=== PATIENT | female | born 1940 | race Caucasian/White ===

== ENCOUNTER 2017-10-08 16:36 | Inpatient (IN) | payer MEDICARE ==
[~2017-10-08] VITALS: Ht 165.1 cm; Wt 75.0 kg
[2017-10-08] VITALS (9 sets, daily range): BP systolic 120–159; BP diastolic 56–67; PULSE 70–89; RESP 16–20; TEMP 98–99; O2SAT 95–99
[~2017-10-08 16:36] MED LIST: CARB1DRO OU; LATA0.00 OP; LISI-360 PO; OMEP20TA PO; PILO2SOL3 LEFT EYE; SIMV40TA PO; TRUS2SOL OU
[2017-10-08] MEDS ORDERED: SODIUM CHLORIDE 0.9% FLUSH 10 ML FLUSH IVF PRN (17:00)
--- NOTE | 2017-10-08 17:01 | PD ---
HPI Chief Complaint: Chest Pain Time Seen by Provider: 16:56 Travel History International Travel<30 days: No Contact w/Intl Traveler<30days: No Traveled to known affect area: No History of Present Illness HPI This is a 76-year-old female with history of GERD, hypertension, diabetes, hyperlipidemia. She presents via EMS for evaluation of chest pain. She reports that prior to arrival she developed a sharp substernal chest pain radiating to the back. This occurred shortly after eating meat loaf. Symptoms lasted for approximately 5-10 minutes. She reports that EMS arrived and administered 3 baby aspirin as well as a nitroglycerin spray. She reports that after the sublingual spray her chest pain resolved but she had a brief 5-10 second syncopal episode and her blood pressure went down to the 90s systolic per EMS. She swiftly regained consciousness and her blood pressure improved. She has since been asymptomatic. She denies headache, shortness of breath, cough, congestion, abdominal pain, nausea, vomiting. She reports maternal and paternal history of coronary artery disease. According to chart review she had a normal stress test in 2011, she points that she has not had any stress testing since then. She has no other complaints at this time. PFSH Past Medical History Cardiovascular Problems: Yes High Cholesterol: Yes Diabetes: No ("PRE-DIABETES") Gastrointestinal Disorders: Yes (HX OF GALLSTONES) Glaucoma: Yes Past Surgical History Hysterectomy: Yes Other Surgery: Yes (LAMINECTOMY) Social History Alcohol Use: No Tobacco Use: No Substance Use: No Allergies-Medications (Allergen,Severity, Reaction): Uncoded Allergies: tolectin (Allergy, Severe, ANAPHYLAXIS, 03/07/12) Reported Meds & Prescriptions Reported Meds & Active Scripts Active Reported Refresh Opth Drops (Polyvinyl Alcohol-Povidone Opth Drops) 1.4-0.6% Drops 1-2 Drop EACH EYE PRN PRN Trusopt Opth Drops (Dorzolamide HCl) 2% Soln 1 Drop EACH EYE TID Latanoprost Opth Drops (Latanoprost) 0.005% Drops 1 Drop EACH EYE HS Refrigerate until opened. Lisinopril 10 Mg Tab 10 Mg PO DAILY Omeprazole 20 Mg Tab 20 Mg PO DAILY Pilocarpine Opth 2% (Pilocarpine HCl) 2 % Soln 1 Drop LEFT EYE Q6HR Zocor (Simvastatin) 40 Mg Tab 40 Mg PO DAILY Review of Systems Except as stated in HPI: all other systems reviewed are Neg Physical Exam Narrative GENERAL: Well-developed well-nourished female no acute distress SKIN: Warm and dry. HEAD: Atraumatic. Normocephalic. EYES: Pupils equal and round. No scleral icterus. No injection or drainage. ENT: No nasal bleeding or discharge. Mucous membranes pink and moist. NECK: Trachea midline. No JVD. CARDIOVASCULAR: Regular rate and rhythm. No murmur appreciated. RESPIRATORY: No accessory muscle use. Clear to auscultation. Breath sounds equal bilaterally. GASTROINTESTINAL: Abdomen soft, non-tender, nondistended. Hepatic and splenic margins not palpable. MUSCULOSKELETAL: No obvious deformities. No clubbing. No cyanosis. No edema. NEUROLOGICAL: Awake and alert. No obvious cranial nerve deficits. Motor grossly within normal limits. Normal speech. PSYCHIATRIC: Appropriate mood and affect; insight and judgment normal. Data Data Last Documented VS Vital Signs Date Time Temp Pulse Resp B/P (MAP) Pulse Ox O2 Delivery O2 Flow Rate FiO2 10/08/17 18:34 72 18 145/67 (93) 97 Room Air 10/08/17 17:10 99.0 10/08/17 16:48 2.00 Orders Orders Electrocardiogram (10/08/17 16:58) Basic Metabolic Panel (Bmp) (10/08/17 16:58) Ckmb (Isoenzyme) Profile (10/08/17 16:58) Complete Blood Count With Diff (10/08/17 16:58) Magnesium (Mg) (10/08/17 16:58) Prothrombin Time / Inr (Pt) (10/08/17 16:58) Act Partial Throm Time (Ptt) (10/08/17 16:58) Troponin I (10/08/17 16:58) Ecg Monitoring (10/08/17 16:58) Bilateral Bp Monitoring (10/08/17 16:58) Iv Access Insert/Monitor (10/08/17 16:58) Oximetry (10/08/17 16:58) Oxygen Administration (10/08/17 16:58) Sodium Chloride 0.9% Flush (Ns Flush) (10/08/17 17:00) Chest, Pa & Lat (10/08/17 16:58) Type And Screen (10/08/17 17:54) Pantoprazole Inj (Protonix Inj) (10/08/17 18:00) Admit Order (Ed Use Only) (10/08/17 19:26) Labs Laboratory Tests Test 10/08/17 17:00 White Blood Count 5.0 TH/MM3 Red Blood Count 2.04 MIL/MM3 Hemoglobin 7.6 GM/DL Hematocrit 22.8 % Mean Corpuscular Volume 111.5 FL Mean Corpuscular Hemoglobin 37.3 PG Mean Corpuscular Hemoglobin Concent 33.4 % Red Cell Distribution Width 18.6 % Platelet Count 104 TH/MM3 Mean Platelet Volume 11.1 FL Neutrophils (%) (Auto) 93.8 % Lymphocytes (%) (Auto) 4.6 % Monocytes (%) (Auto) 0.7 % Eosinophils (%) (Auto) 0.2 % Basophils (%) (Auto) 0.7 % Neutrophils # (Auto) 4.7 TH/MM3 Lymphocytes # (Auto) 0.2 TH/MM3 Monocytes # (Auto) 0.0 TH/MM3 Eosinophils # (Auto) 0.0 TH/MM3 Basophils # (Auto) 0.0 TH/MM3 CBC Comment AUTO DIFF Differential Comment AUTO DIFF CONFIRMED Platelet Estimate LOW Platelet Morphology Comment ENLARGED Prothrombin Time 10.7 SEC Prothromb Time International Ratio 1.1 RATIO Activated Partial Thromboplast Time 22.2 SEC Blood Urea Nitrogen 11 MG/DL Creatinine 0.98 MG/DL Random Glucose 123 MG/DL Calcium Level 8.0 MG/DL Magnesium Level 2.0 MG/DL Sodium Level 139 MEQ/L Potassium Level 3.7 MEQ/L Chloride Level 109 MEQ/L Carbon Dioxide Level 23.7 MEQ/L Anion Gap 6 MEQ/L Estimat Glomerular Filtration Rate 55 ML/MIN Total Creatine Kinase 43 U/L Troponin I LESS THAN 0.02 NG/ML [facility] Medical Decision Making Medical Screen Exam Complete: Yes Emergency Medical Condition: Yes Medical Record Reviewed: Yes Differential Diagnosis Acute coronary syndrome, angina, aortic dissection, pulmonary embolism, pericarditis, myocarditis, pneumothorax, hemothorax Narrative Course The patient was placed on ECG monitoring pulse oximetry. A 12-lead EKG was obtained revealing sinus rhythm. Lab work, chest x-ray have been ordered. The patient is currently asymptomatic. The patient's CBC reveals a hemoglobin of 7.6 which is macrocytic. She has platelet count of 104. Her most recent hemoglobin on record here was 14.3 on March 07, 2012. She reports that she recently saw a airplane and engine inspector name Dr. Kenneth Mccray who told her that her blood count was "low" and did a bone marrow biopsy 10 days ago, she does not yet know the results. She denies any shortness of breath, dyspnea with exertion, lightheadedness, dizziness. She denies any hematuria, hematemesis, black or tarry stools, bright red blood per rectum. Rectal examination does reveal brown stool which is heme positive. CK and troponin are normal. Glucose is 123. Chloride is 109. Calcium is 8.0. The patient will be admitted to the medicine service. [facility] Point of Care Internal Pos. & Neg. Controls: Passed Fecal Specimen Occult Blood: Positive Diagnosis Primary Impression: Chest pain Additional Impressions: GI bleed Anemia Admitting Information Admitting Physician Requests: Admit Willis Najera Oct 08, 2017 17:01
[2017-10-08] MEDS ORDERED: PILO2SOL3 LEFT EYE (17:05)
[2017-10-08] MEDS ORDERED: LISI10TA3 PO (17:05)
[2017-10-08] MEDS ORDERED: OMEP20TA93 PO (17:05)
[2017-10-08] MEDS ORDERED: TRUS2SOL EACH EYE (17:05)
[2017-10-08] MEDS ORDERED: ZOCO40TA PO (17:05)
[2017-10-08] MEDS ORDERED: LATA0.002 EACH EYE (17:05)
[2017-10-08] MEDS ORDERED: REFRDRO EACH EYE (17:05)
[2017-10-08 17:20] LABS: AUTOMATED NEUTROPHIL # 4.7 TH/MM3 (1.8-7.7); BASOPHIL % 0.7 % (0.0-2.0); EOSINOPHIL % 0.2 % (0.0-4.0); HEMATOCRIT 22.8 % (35.0-46.0); HEMOGLOBIN 7.6 GM/DL (11.6-15.3); LYMPH % 4.6 % (9.0-44.0); LYMPHOCYTE # 0.2 TH/MM3 (1.0-4.8); MEAN CELL VOLUME 111.5 FL (80.0-100.0); MEAN CORPUSCULAR HEMOGLOBIN 37.3 PG (27.0-34.0); MEAN CORPUSCULAR HGB CONC 33.4 % (32.0-36.0); MEAN PLATELET VOLUME 11.1 FL (7.0-11.0); MONO % 0.7 % (0.0-8.0); NEUT % 93.8 % (16.0-70.0); PLATELET COUNT 104 TH/MM3 (150-450); RED BLOOD COUNT 2.04 MIL/MM3 (4.00-5.30); RED CELL DISTRIBUTION WIDTH 18.6 % (11.6-17.2)
[2017-10-08 17:29] LABS: INTERNATIONAL NORMALIZED RATIO 1.1 RATIO; PROTHROMBIN TIME - PATIENT 10.7 SEC (9.8-11.6)
--- NOTE | 2017-10-08 17:38 | RADRPT ---
EXAM DATE/TIME: 10/08/2017 17:22 [facility] COMPARISON: No previous studies available for comparison. INDICATIONS : Chest pain. MEDICAL HISTORY : None. SURGICAL HISTORY : None. ENCOUNTER: Initial ACUITY: 1 day PAIN SCORE: 07/09 LOCATION: Bilateral chest FINDINGS: PA and lateral views of the chest demonstrate the lungs to be symmetrically aerated without evidence of mass, infiltrate or effusion. The cardiomediastinal contours are unremarkable. Osseous structure s are intact. CONCLUSION: No acute disease. Patrick Stephens MD on October 08, 2017 at 17:34 Board Certified Radiologist. This report was verified electronically.
[2017-10-08 17:39] LABS: BICARBONATE 23.7 MEQ/L (21.0-32.0); BLOOD UREA NITROGEN 11 MG/DL (7-18); CHLORIDE 109 MEQ/L (98-107); CREATININE 0.98 MG/DL (0.50-1.00); GLOMERULAR FILTRATION RATE 55 ML/MIN (>89); GLUCOSE,RANDOM 123 MG/DL (74-106); SODIUM (NA) 139 MEQ/L (136-145)
[2017-10-08 17:43] LABS: TROPONIN I LESS THAN 0.02 NG/ML (0.02-0.05)
[2017-10-08] MEDS ORDERED: PANTOPRAZOLE SODIUM 40 MG VIAL IVP ONE (18:00)
[2017-10-08] MEDS ORDERED: ACETAMINOPHEN 325 MG TAB PO PRN (20:15)
[2017-10-08] MEDS ORDERED: NALOXONE HCL 0.4 MG/ML AMP IV PUSH PRN (20:15)
[2017-10-08] MEDS ORDERED: ONDANSETRON HCL 4 MG/2 ML VIAL IVP PRN (20:15)
[2017-10-08] MEDS ORDERED: MAGNESIUM HYDROXIDE SUSP 30 ML CUP PO PRN (20:15)
[2017-10-08] MEDS ORDERED: SODIUM CHLORIDE 0.9% FLUSH 10 ML FLUSH IV FLUSH PRN (20:15)
[2017-10-08] MEDS ORDERED: CARBOXYMETHYLCELL SOD 0.5% OPTH SOLN 15 ML BTL EACH EYE PRN (20:30)
[2017-10-08] MEDS ORDERED: cloNIDine HCL 0.2 MG TAB PO PRN (20:30)
[2017-10-08] MEDS ORDERED: ENALAPRILAT 1.25 MG/ML VIAL IV PRN (20:30)
--- NOTE | 2017-10-08 20:48 | RADRPT ---
EXAM DATE/TIME: 10/08/2017 20:11 [facility] COMPARISON: No previous studies available for comparison. INDICATIONS : Chest pain starting today MEDICAL HISTORY : None. SURGICAL HISTORY : None. ENCOUNTER: Initial ACUITY: 1 day PAIN SCORE: 5/10 LOCATION: Bilateral chest FINDINGS: A single view of the chest demonstrates the lungs to be symmetrically aerated without evidence of mas s, infiltrate or effusion. The cardiomediastinal contours are unremarkable. Osseous structures are intact. CONCLUSION: 1. No active disease. Husam Byrd MD on October 08, 2017 at 20:45 Board Certified Radiologist. This report was verified electronically.
[2017-10-08] MEDS: SODIUM CHLORIDE 0.9% FLUSH 10 ML FLUSH IV FLUSH SCH (21:00)
[2017-10-08] MEDS: LATANOPROST 0.005% OPHT SOLN 2.5 ML BTL EACH EYE SCH (21:00)
[2017-10-08] MEDS: ATORVASTATIN 20 MG TAB PO SCH (21:21)
[2017-10-08 21:35] LABS: ALBUMIN 3.4 GM/DL (3.4-5.0); DIRECT BILIRUBIN ADULT 0.5 MG/DL (0.0-0.2)
[2017-10-08 21:36] LABS: INDIRECT BILIRUBIN 0.6 MG/DL (0.0-0.8); TOTAL BILIRUBIN ADULT 1.1 MG/DL (0.2-1.0); TOTAL PROTEIN 6.7 GM/DL (6.4-8.2)
[2017-10-09] VITALS (10 sets, daily range): BP systolic 119–150; BP diastolic 55–66; PULSE 74–96; RESP 16–20; TEMP 98.7–100.2; O2SAT 89–97
[2017-10-09] MEDS: DORZOLAMIDE 2% OPTH SOLN 200 DROP/10 ML BTLO EACH EYE SCH ×3 (09:00→18:00)
[2017-10-09] MEDS: LISINOPRIL 10 MG TAB PO SCH (09:09)
[2017-10-09] MEDS: SODIUM CHLORIDE 0.9% FLUSH 10 ML FLUSH IV FLUSH SCH ×2 (09:10→19:57)
[2017-10-09] MEDS: PANTOPRAZOLE SOD 40 MG DELAYED RELEASE TAB PO SCH (09:10)
[2017-10-09 09:31] LABS: HEMATOCRIT 24.3 % (35.0-46.0); MEAN CELL VOLUME 111.7 FL (80.0-100.0); MEAN CORPUSCULAR HEMOGLOBIN 36.6 PG (27.0-34.0); MEAN CORPUSCULAR HGB CONC 32.8 % (32.0-36.0); MEAN PLATELET VOLUME 11.1 FL (7.0-11.0); PLATELET COUNT 100 TH/MM3 (150-450); RED BLOOD COUNT 2.18 MIL/MM3 (4.00-5.30); RED CELL DISTRIBUTION WIDTH 18.8 % (11.6-17.2); WHITE BLOOD COUNT 3.7 TH/MM3 (4.0-11.0)
[2017-10-09 09:38] LABS: CALCIUM 8.5 MG/DL (8.5-10.1); CREATININE 0.97 MG/DL (0.50-1.00)
[2017-10-09] MEDS ORDERED: RESP: ALBUTEROL 2.5 MG/IPRATROPIUM 0.5 MG NEB (PRN) NEB (09:45)
--- NOTE | 2017-10-09 09:55 | HHI.HP ---
HPI Service [facility] Hospitalists Primary Care Physician Georgette Mccracken MD Admission Diagnosis Chest pain, GI bleed, anemia, syncope Chief Complaint: chest pain Travel History International Travel<30 Days: No Contact w/Intl Traveler <30 Da: No Traveled to Known Affected Are: No History of Present Illness This is a 76-year-old female with history of GERD, hypertension, diabetes (diet controlled), hyperlipidemia, chronic kidney disease stage III, diverticulosis, anxiety. She presents via EMS for evaluation of chest pain. She reports that prior to arrival she developed a sharp substernal chest pain radiating to the back. The chest pain was associated with nasea, vomiting and diaphoresis. This occurred shortly after eating meat loaf. Symptoms lasted for approximately 30 minutes. She reports that EMS arrived and administered 3 baby aspirin as well as a nitroglycerin spray. She reports that after the sublingual spray her chest pain resolved but she had a brief 5-10 second syncopal episode and her blood pressure went down to the 90s systolic per EMS. She swiftly regained consciousness and her blood pressure improved. She has since been asymptomatic. She denies headache, shortness of breath, cough, congestion, abdominal pain, nausea, vomiting. According to old records she had a normal stress test in 2011, she points that she has not had any stress testing since then. She has no other complaints at this time. The patient's CBC reveals a hemoglobin of 7.6 which is macrocytic. She has platelet count of 104. Her most recent hemoglobin on record with [facility] 09/01/17 9.0, B12 507, Folate 6.7 and reticulocyte count 0.9. She reports that she recently saw a oncologist/apron operator Dr. Kenneth Mccray and did a bone marrow biopsy 10 days ago. Patient had appointment with Dr. 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 She denies any shortness of breath, dyspnea with exertion, lightheadedness, dizziness. She denies any hematuria, hematemesis, black or tarry stools, bright red blood per rectum. Rectal examination in the ER reports brown stool which is heme positive. Past Family Social History Past Medical History diabetes (diet controlled), anemia, hyperlipidemia, hypertension, chronic kidney disease stage III, Diverticulosis, anxiety, GERD, hyperlipidemia, Past Surgical History Back surgery, bladder surgery, coronary needle biopsy of breast, cataract surgery, colonoscopy, EGD, rhinoplasty, tonsillectomy, total abdominal hysterectomy with bilateral oophorectomy Reported Medications Refresh Opth Drops (Polyvinyl Alcohol-Povidone Opth Drops) 1.4-0.6% Drops 1-2 Drop EACH EYE PRN PRN Trusopt Opth Drops (Dorzolamide HCl) 2% Soln 1 Drop EACH EYE TID Latanoprost Opth Drops (Latanoprost) 0.005% Drops 1 Drop EACH EYE HS Refrigerate until opened. Lisinopril 10 Mg Tab 10 Mg PO DAILY Omeprazole 20 Mg Tab 20 Mg PO DAILY Pilocarpine Opth 2% (Pilocarpine HCl) 2 % Soln 1 Drop LEFT EYE Q6HR Zocor (Simvastatin) 40 Mg Tab 40 Mg PO DAILY Allergies: Uncoded Allergies: tolectin (Allergy, Severe, ANAPHYLAXIS, 03/07/12) Family History Family history includes breast cancer, osteoporosis, ovarian carcinoma, diabetes mellitus and coronary artery disease Social History Denies EtOH use tobacco use or illicit drug use Physical Exam Vital Signs Vital Signs Date Time Temp Pulse Resp B/P (MAP) Pulse Ox O2 Delivery O2 Flow Rate FiO2 10/09/17 07:30 99.2 88 20 136/61 (86) 94 10/09/17 03:54 85 10/09/17 03:36 99.8 84 18 148/65 (92) 97 10/09/17 00:07 99.2 74 16 119/55 (76) 97 10/09/17 00:00 Room Air 10/08/17 23:49 70 10/08/17 21:10 78 10/08/17 20:47 10/08/17 20:42 98.0 89 16 159/67 (97) 96 10/08/17 19:44 70 16 141/63 (89) 98 Room Air 10/08/17 18:34 72 18 145/67 (93) 97 Room Air 10/08/17 17:10 99.0 77 18 136/62 (86) 99 Room Air 10/08/17 17:10 99 Room Air 10/08/17 17:07 82 120/56 (77) 10/08/17 17:06 80 16 120/56 (77) 97 10/08/17 16:48 99 Nasal Cannula 2.00 10/08/17 16:48 99.0 77 20 136/62 (86) 95 10/08/17 16:48 77 18 136/62 (86) 98 Physical Exam GENERAL: This is a well-nourished, well-developed patient, in no apparent distress. SKIN: No rashes, ecchymoses or lesions. Cool and dry. HEAD: Atraumatic. Normocephalic. No temporal or scalp tenderness. EYES: Extraocular motions intact. No scleral icterus. No injection or drainage. CARDIOVASCULAR: Regular rate and rhythm RESPIRATORY: Clear to auscultation. Breath sounds equal bilaterally. GASTROINTESTINAL: Abdomen soft, nondistended. Tenderness RUQ MUSCULOSKELETAL: Extremities without clubbing, cyanosis, or edema. No joint tenderness, effusion, or edema noted. No calf tenderness. Negative Homans sign bilaterally. NEUROLOGICAL: Awake and alert. No focal deficits. Motor and sensory grossly within normal limits. Five out of 5 muscle strength in all muscle groups. Normal speech. Laboratory Laboratory Tests Test 10/08/17 17:00 10/09/17 06:45 White Blood Count 5.0 3.7 Red Blood Count 2.04 2.18 Hemoglobin 7.6 8.0 Hematocrit 22.8 24.3 Mean Corpuscular Volume 111.5 111.7 Mean Corpuscular Hemoglobin 37.3 36.6 Mean Corpuscular Hemoglobin Concent 33.4 32.8 Red Cell Distribution Width 18.6 18.8 Platelet Count 104 100 Mean Platelet Volume 11.1 11.1 Neutrophils (%) (Auto) 93.8 Lymphocytes (%) (Auto) 4.6 Monocytes (%) (Auto) 0.7 Eosinophils (%) (Auto) 0.2 Basophils (%) (Auto) 0.7 Neutrophils # (Auto) 4.7 Lymphocytes # (Auto) 0.2 Monocytes # (Auto) 0.0 Eosinophils # (Auto) 0.0 Basophils # (Auto) 0.0 CBC Comment AUTO DIFF AUTO DIFF Differential Comment AUTO DIFF CONFIRMED Platelet Estimate LOW Platelet Morphology Comment ENLARGED Prothrombin Time 10.7 Prothromb Time International Ratio 1.1 Activated Partial Thromboplast Time 22.2 Blood Urea Nitrogen 11 8 Creatinine 0.98 0.97 Random Glucose 123 108 Calcium Level 8.0 8.5 Magnesium Level 2.0 Sodium Level 139 139 Potassium Level 3.7 3.5 Chloride Level 109 108 Carbon Dioxide Level 23.7 22.0 Anion Gap 6 9 Estimat Glomerular Filtration Rate 55 56 Total Bilirubin 1.1 Direct Bilirubin 0.5 Indirect Bilirubin 0.6 Aspartate Amino Transf (AST/SGOT) 491 Alanine Aminotransferase (ALT/SGPT) 303 Alkaline Phosphatase 268 Total Creatine Kinase 43 Troponin I LESS THAN 0.02 Total Protein 6.7 Albumin 3.4 Result Diagram: 10/09/17 0645 10/09/17 0645 Imaging Last Impressions Chest X-Ray 10/08/172001 Signed Impressions: Service Date/Time: Sunday, October 08, 2017 20:11 - CONCLUSION: 1. No active disease. MD Sharon Aguilar VTE Risk Assessment Caprinrona VTE Risk Assessment: Mod/High Risk (score >= 2) Caprini Risk Assessment Model Point Value = 1 Point Value = 2 Point Value = 3 Point Value = 5 Age 41-60 Minor surgery BMI > 25 kg/m2 Swollen legs Varicose veins or History of unexplained or recurrent spontaneous Oral contraceptives or hormone replacement Sepsis (< 1 month) Serious lung disease, including pneumonia (< 1 month) Abnormal pulmonary function Acute myocardial infarction Congestive heart failure (< 1 month) History of inflammatory bowel disease Medical patient at bed rest Age 61-74 Arthroscopic surgery Major open surgery (> 45 min) Laparoscopic surgery (> 45 min) Malignancy Confined to bed (> 72 hours) Immobilizing plaster cast Central venous access Age >= 75 History of VTE Family history of VTE Factor V Leiden Prothrombin [id number] Lupus anticoagulant Anticardiolipin antibodies Elevated serum homocysteine Heparin-induced thrombocytopenia Other congenital or acquired thrombophilia Stroke (< 1 month) Elective arthroplasty Hip, pelvis, or leg fracture Acute spinal cord injury (< 1 month) Prophylaxis Regimen Total Risk Factor Score Risk Level Prophylaxis Regimen 0-1 Low Early ambulation 2 Moderate Order ONE of the following: *Sequential Compression Device (SCD) *Heparin 5000 units SQ BID 3-4 Higher Order ONE of the following medications: *Heparin 5000 units SQ TID *Enoxaparin/Lovenox 40 mg SQ daily (WT < 150 kg, CrCl > 30 mL/min) *Enoxaparin/Lovenox 30 mg SQ daily (WT < 150 kg, CrCl > 10-29 mL/min) *Enoxaparin/Lovenox 30 mg SQ BID (WT < 150 kg, CrCl > 30 mL/min) AND/OR *Sequential Compression Device (SCD) 5 or more Highest Order ONE of the following medications: *Heparin 5000 units SQ TID (Preferred with Epidurals) *Enoxaparin/Lovenox 40 mg SQ daily (WT < 150 kg, CrCl > 30 mL/min) *Enoxaparin/Lovenox 30 mg SQ daily (WT < 150 kg, CrCl > 10-29 mL/min) *Enoxaparin/Lovenox 30 mg SQ BID (WT < 150 kg, CrCl > 30 mL/min) AND *Sequential Compression Device (SCD) Assessment and Plan Problem List: (1) Anemia ICD Codes: D64.9 - Anemia, unspecified Status: Acute Plan: - The patient's hemoglobin on admission was 7.6 and macrocytic. recent hemoglobin on record with [facility] 09/01/17 9.0. - Recent outpatient labs revealed B12 09/01/17 507, Folate 6.7, reticulocyte count 0.9 - Patient reports that she recently saw a apron operator Dr. Kenneth Mccray - fecal Specimen Occult Blood in the ER Positive - Outpatient ultrasound the abdomen impression: Evidence consistent with numerous gallstones in the gallbladder and a dilated common bile duct measuring 10.2 mm in size. A definitive filling defect is not seen. Recommend MRCP. Liver is mildly echogenic and heterogeneous with areas of decreased echo test architecture suggesting probable fatty infiltrate change with areas of fatty sparing. 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 No acute abnormalities. No focal destructive or sclerotic changes in the bone structures noted - patient also reports that she had a bone marrow biopsy [address] 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 Per patient and daughter at bedside patient had appointment with Dr. 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 Patient is currently thinking about her treatment options and possible further workup - Hemoglobin on admission 7.6 -> (10/09) 8.0 -> (10/09 @ 1305) 8.2 - consult oncology/hematology for assistance (2) Chest pain ICD Codes: R07.9 - Chest pain, unspecified Status: Acute Plan: Possible secondary to anemia or gallbladder initial troponin < 0.02 initial EKG NSR rate [address] changes repeat troponin requested repeat EKG requested (3) GI bleed ICD Codes: K92.2 - Gastrointestinal hemorrhage, unspecified Status: Acute Plan: Patient had macrocytic anemia on admission fecal occult blood checked in the ER was positive (4) Transaminitis ICD Codes: R74.0 - Nonspecific elevation of levels of transaminase and lactic acid dehydrogenase [LDH] Plan: Outpatient ultrasound the abdomen impression: Evidence consistent with numerous gallstones in the gallbladder and a dilated common bile duct measuring 10.2 mm in size. A definitive filling defect is not seen. Recommend MRCP. Liver is mildly echogenic and heterogeneous with areas of decreased echo test architecture suggesting probable fatty infiltrate change with areas of fatty sparing. If the patient has a known malignancy then other etiology left given - total bilirubin 1.1, AST 491, ALT 268 and Alk Phos 268 - Patient with acute elevation of liver enzymes and "chest pain," after eating. - MRCP requested Assessment and Plan Patient examined. Assessment and plan formulated with Hannah Suarez PA-C. I agree with the above. Possible choledocholithiasis Obtain MRCP possible infection of biliary tact obtain blood cultures start IV zosyn. Physician Certification 2 Midnight Certification Type: Admission for Inpatient Services Order for Inpatient Services The services are ordered in accordance with Medicare regulations or non- Medicare payer requirements, as applicable. In the case of services not specified as inpatient-only, they are appropriately provided as inpatient services in accordance with the 2-midnight benchmark. Estimated LOS (days): 3 days is the estimated time the patient will need to remain in the hospital, assuming treatment plan goals are met and no additional complications. Post-Hospital Plan: Not yet determined Hannah Suarez Oct 09, 2017 09:55 Satinder Wallace DO Oct 10, 2017 22:00
[2017-10-09 10:58] LABS: BANDS 4 % (0-6); BLASTS 1 % (0-0); LYMPHOCYTES 15 % (9-44); MONOCYTES 29 % (0-8); POLYS (SEG NEUTROPHILS) 51 % (16-70)
[2017-10-09] MEDS ORDERED: CALCIUM CARBONATE 500 MG CHEWABLE TAB CHEW PRN (12:30)
[2017-10-09] MEDS: ACETAMINOPHEN 325 MG TAB PO PRN ×2 (12:44→19:57)
[2017-10-09 13:45] LABS: HEMATOCRIT 24.5 % (35.0-46.0); HEMOGLOBIN 8.2 GM/DL (11.6-15.3)
[2017-10-09] MEDS ORDERED: IBUPROFEN 400 MG TAB PO PRN (16:30)
[2017-10-09] MEDS: PIPERACIL-TAZO 3.375 GM PREMIX 50 ML IV SCH (18:00)
--- NOTE | 2017-10-09 18:53 | EKG ---
Date Performed: 10/08/2017 Time Performed: 16:51:53 PTAGE: 76 years EKG: Sinus rhythm NONSPECIFIC T-WAVE ABNORMALITY BORDERLINE ECG INTERPRETATION BASED ON A DEFAULT AGE OF 40 YEARS Sinc e the PREVIOUS TRACING , no significant change noted PREVIOUS TRACIN03/08/12 @ 0147 DOCTOR: Nolan Hair Interpretating Date/Time 10/09/2017 18:49:16
--- NOTE | 2017-10-09 18:54 | EKG ---
Date Performed: 10/08/2017 Time Performed: 22:40:07 PTAGE: 76 years EKG: Sinus rhythm NONSPECIFIC T-WAVE ABNORMALITY BORDERLINE ECG Since the PREVIOUS TRACING , no significant change noted PREVIOUS TRACIN10/08/2017 16.51 DOCTOR: Nolan Hair Interpretating Date/Time 10/09/2017 18:49:29
[2017-10-09] MEDS: ATORVASTATIN 20 MG TAB PO SCH (19:57)
[2017-10-09 21:17] LABS: BILIRUBIN, URINE SMALL (NEG); BLOOD, URINE MOD (NEG); GLUCOSE,URINE 300 mg/dL (NEG); KETONE, URINE NEG (NEG); MUCUS URINE FEW /lpf (OCC); NITRITE,URINE NEG (NEG); PH, URINE 5.5 (5.0-8.5); SQUAMOUS EPITHELIAL CELL URINE 1 /hpf (0-5); URINE COLOR DARK-YELLOW (YELLW/STRAW); URINE LEUKOCYTE ESTERASE NEG (NEG)
[2017-10-09] MEDS: LATANOPROST 0.005% OPHT SOLN 2.5 ML BTL EACH EYE SCH (23:04)
[2017-10-09 23:29] LABS: ALBUMIN 3.2 GM/DL (3.4-5.0); AST (GOT) 257 U/L (15-37); BICARBONATE 21.9 MEQ/L (21.0-32.0); BLOOD UREA NITROGEN 13 MG/DL (7-18); CALCIUM 8.7 MG/DL (8.5-10.1); CHLORIDE 104 MEQ/L (98-107); CREATININE 1.39 MG/DL (0.50-1.00); GLOMERULAR FILTRATION RATE 37 ML/MIN (>89); GLUCOSE,RANDOM 126 MG/DL (74-106); SODIUM (NA) 136 MEQ/L (136-145)
[2017-10-09 23:30] LABS: ALT (GPT) 294 U/L (10-53)
[2017-10-09 23:34] LABS: ALKALINE PHOSPHATASE 355 U/L (45-117); TOTAL BILIRUBIN ADULT 2.6 MG/DL (0.2-1.0); TOTAL PROTEIN 6.8 GM/DL (6.4-8.2); TROPONIN I LESS THAN 0.02 NG/ML (0.02-0.05)
[2017-10-10] VITALS (8 sets, daily range): BP systolic 90–136; BP diastolic 42–60; PULSE 64–77; RESP 17–18; TEMP 97.3–98.3; O2SAT 94–97
[2017-10-10] MEDS: PIPERACIL-TAZO 3.375 GM PREMIX 50 ML IV SCH ×3 (03:09→18:00)
[2017-10-10 08:10] LABS: HEMATOCRIT 25.1 % (35.0-46.0); HEMOGLOBIN 8.4 GM/DL (11.6-15.3); MEAN CELL VOLUME 111.4 FL (80.0-100.0); MEAN CORPUSCULAR HEMOGLOBIN 37.4 PG (27.0-34.0); MEAN CORPUSCULAR HGB CONC 33.6 % (32.0-36.0); MEAN PLATELET VOLUME 11.4 FL (7.0-11.0); PLATELET COUNT 81 TH/MM3 (150-450); RED BLOOD COUNT 2.25 MIL/MM3 (4.00-5.30); RED CELL DISTRIBUTION WIDTH 19.2 % (11.6-17.2); WHITE BLOOD COUNT 10.2 TH/MM3 (4.0-11.0)
[2017-10-10] MEDS: SODIUM CHLORIDE 0.9% FLUSH 10 ML FLUSH IV FLUSH SCH ×2 (08:47→20:39)
[2017-10-10] MEDS: LISINOPRIL 10 MG TAB PO SCH (08:48)
[2017-10-10] MEDS: PANTOPRAZOLE SOD 40 MG DELAYED RELEASE TAB PO SCH (08:48)
[2017-10-10] MEDS: DORZOLAMIDE 2% OPTH SOLN 200 DROP/10 ML BTLO EACH EYE SCH ×3 (09:00→18:00)
[2017-10-10 09:19] LABS: BANDS 6 % (0-6); LYMPHOCYTES 9 % (9-44); METAMYELOCYTES 1 % (0-1); NEUTROPHIL # MANUAL DIFF 6.8 TH/MM3 (1.8-7.7); POLYS (SEG NEUTROPHILS) 60 % (16-70)
[2017-10-10] MEDS ORDERED: POTASSIUM CHLORIDE 10 MEQ CONTROLLED RELEASE TAB PO ONE (10:00)
--- NOTE | 2017-10-10 11:31 | RADRPT ---
EXAM DATE/TIME: 10/10/2017 09:40 [facility] COMPARISON: No previous studies available for comparison. INDICATIONS : Abdominal pain. MEDICAL HISTORY : Diabetes mellitus type 2. Hypertension. Gastroesophageal reflux disease. SURGICAL HISTORY : Fusion, lumbar. Hysterectomy. Tonsillectomy. ENCOUNTER: Initial ACUITY: 2 day PAIN SCORE: 0/10 LOCATION: Abdomen TECHNIQUE: Multiplanar, multisequence magnetic resonance imaging of the abdomen was performed. High-resolution 3D dataset was utilized to reconstruct maximum-intensity projection (MIP) images. FINDINGS: There is evidence of a 9 mm stone within the distal common bile duct resulting in dilatation of the e xtrahepatic biliary system. The distal common bile that measures 10 mm in caliber. Cholelithiasis is noted. The main pancreatic duct is normal in caliber. Multiple bilateral renal cysts are noted. There is a 6.2 cm left lobe hepatic cyst. A tiny 0.4 cm right lobe hepatic cyst. is also noted in Mild sco liosis of the thoracolumbar spine is noted. CONCLUSION: 1. 9 mm stone within the distal common bile duct resulting in dilatation of the extrahepatic biliary system. 2. Cholelithiasis. 3. Multiple bilateral renal cysts and large left hepatic lobe cyst. 4. Mild scoliosis of the thoracolumbar spine. Patrick Stephens MD on October 10, 2017 at 11:19 Board Certified Radiologist. This report was verified electronically.
[2017-10-10 11:43] LABS: BLASTS 0 % (0-0); MONOCYTES 24 % (0-8)
[2017-10-10] MEDS ORDERED: ROCURONIUM INJ 50 MG/5 ML SYRINGE IV PUSH ONE (12:00)
[2017-10-10] MEDS ORDERED: LIDOCAINE HCL 1% PF 5 ML SYRINGE OTHER ONE (12:00)
[2017-10-10] MEDS ORDERED: PROPOFOL 200 MG/20 ML AMP IV ONE (12:00)
[2017-10-10] MEDS ORDERED: ONDANSETRON HCL 4 MG/2 ML VIAL IV ONE (12:00)
[2017-10-10] MEDS ORDERED: ePHEDrine/NS 25 MG/5 ML SYRINGE IV ONE (12:00)
[2017-10-10] MEDS ORDERED: SUCCINYLCHOLINE CHLORIDE 200 MG/10 ML VIAL IV ONE (12:00)
[2017-10-10] MEDS ORDERED: NEOSTIGMINE 5 MG/5 ML SYRINGE IV PUSH ONE (12:00)
[2017-10-10] MEDS ORDERED: GLYCOPYRROLATE 1 MG/5 ML SYRINGE IV PUSH ONE (12:00)
[2017-10-10] MEDS ORDERED: PHENYLEPH/NS 1000 MCG/10 ML SYR IV ONE (12:00)
--- NOTE | 2017-10-10 12:24 | HHI.PR ---
Subjective Remarks No new complaints Objective Vitals Vital Signs Date Time Temp Pulse Resp B/P (MAP) Pulse Ox O2 Delivery O2 Flow Rate FiO2 10/10/17 08:00 65 10/10/17 08:00 97.3 71 18 114/56 (75) 95 10/10/17 04:30 98.3 74 17 110/53 (72) 94 10/10/17 04:00 64 10/10/17 01:27 97.6 66 17 90/42 (58) 94 10/10/17 00:00 68 10/09/17 20:30 Room Air 10/09/17 20:00 90 10/09/17 20:00 99.9 88 17 121/61 (81) 93 10/09/17 16:05 100.2 96 20 150/66 (94) 89 10/09/17 16:00 Room Air 10/09/17 16:00 90 Result Diagram: 10/10/17 0625 10/09/17 2255 Other Results Laboratory Tests Test 10/08/17 17:00 10/09/17 06:45 10/09/17 13:05 10/09/17 16:13 White Blood Count 5.0 TH/MM3 3.7 TH/MM3 Red Blood Count 2.04 MIL/MM3 2.18 MIL/MM3 Hemoglobin 7.6 GM/DL 8.0 GM/DL 8.2 GM/DL Hematocrit 22.8 % 24.3 % 24.5 % Mean Corpuscular Volume 111.5 FL 111.7 FL Mean Corpuscular Hemoglobin 37.3 PG 36.6 PG Mean Corpuscular Hemoglobin Concent 33.4 % 32.8 % Red Cell Distribution Width 18.6 % 18.8 % Platelet Count 104 TH/MM3 100 TH/MM3 Mean Platelet Volume 11.1 FL 11.1 FL Neutrophils (%) (Auto) 93.8 % Lymphocytes (%) (Auto) 4.6 % Monocytes (%) (Auto) 0.7 % Eosinophils (%) (Auto) 0.2 % Basophils (%) (Auto) 0.7 % Neutrophils # (Auto) 4.7 TH/MM3 Lymphocytes # (Auto) 0.2 TH/MM3 Monocytes # (Auto) 0.0 TH/MM3 Eosinophils # (Auto) 0.0 TH/MM3 Basophils # (Auto) 0.0 TH/MM3 CBC Comment AUTO DIFF AUTO DIFF Differential Comment AUTO DIFF CONFIRMED FINAL DIFF MANUAL Platelet Estimate LOW LOW Platelet Morphology Comment ENLARGED ENLARGED Prothrombin Time 10.7 SEC Prothromb Time International Ratio 1.1 RATIO Activated Partial Thromboplast Time 22.2 SEC Blood Urea Nitrogen 11 MG/DL 8 MG/DL Creatinine 0.98 MG/DL 0.97 MG/DL Random Glucose 123 MG/DL 108 MG/DL Calcium Level 8.0 MG/DL 8.5 MG/DL Magnesium Level 2.0 MG/DL Sodium Level 139 MEQ/L 139 MEQ/L Potassium Level 3.7 MEQ/L 3.5 MEQ/L Chloride Level 109 MEQ/L 108 MEQ/L Carbon Dioxide Level 23.7 MEQ/L 22.0 MEQ/L Anion Gap 6 MEQ/L 9 MEQ/L Estimat Glomerular Filtration Rate 55 ML/MIN 56 ML/MIN Total Bilirubin 1.1 MG/DL Direct Bilirubin 0.5 MG/DL Indirect Bilirubin 0.6 MG/DL Aspartate Amino Transf (AST/SGOT) 491 U/L Alanine Aminotransferase (ALT/SGPT) 303 U/L Alkaline Phosphatase 268 U/L Total Creatine Kinase 43 U/L Troponin I LESS THAN 0.02 NG/ML LESS THAN 0.02 NG/ML Total Protein 6.7 GM/DL Albumin 3.4 GM/DL Differential Total Cells Counted 100 Neutrophils % (Manual) 51 % Band Neutrophils % 4 % Lymphocytes % 15 % Monocytes % 29 % Neutrophils # (Manual) 2.0 TH/MM3 Blastocytes 1 % Test 10/09/17 20:20 10/09/17 22:55 10/10/17 06:25 10/10/17 11:07 Urine Color DARK-YELLOW Urine Turbidity HAZY Urine pH 5.5 Urine Specific [place] 1.019 Urine Protein 30 mg/dL Urine Glucose (UA) 300 mg/dL Urine Ketones NEG mg/dL Urine Occult Blood MOD Urine Nitrite NEG Urine Bilirubin SMALL Urine Urobilinogen 2.0 MG/DL Urine Leukocyte Esterase NEG Urine RBC 116 /hpf Urine WBC 1 /hpf Urine Squamous Epithelial Cells 1 /hpf Urine Mucus FEW /lpf Microscopic Urinalysis Comment CULT NOT INDICATED Blood Urea Nitrogen 13 MG/DL Creatinine 1.39 MG/DL Random Glucose 126 MG/DL Total Protein 6.8 GM/DL Albumin 3.2 GM/DL Calcium Level 8.7 MG/DL Alkaline Phosphatase 355 U/L Aspartate Amino Transf (AST/SGOT) 257 U/L Alanine Aminotransferase (ALT/SGPT) 294 U/L Total Bilirubin 2.6 MG/DL Sodium Level 136 MEQ/L Potassium Level 3.1 MEQ/L Chloride Level 104 MEQ/L Carbon Dioxide Level 21.9 MEQ/L Anion Gap 10 MEQ/L Estimat Glomerular Filtration Rate 37 ML/MIN Troponin I LESS THAN 0.02 NG/ML White Blood Count 10.2 TH/MM3 Red Blood Count 2.25 MIL/MM3 Hemoglobin 8.4 GM/DL Hematocrit 25.1 % Mean Corpuscular Volume 111.4 FL Mean Corpuscular Hemoglobin 37.4 PG Mean Corpuscular Hemoglobin Concent 33.6 % Red Cell Distribution Width 19.2 % Platelet Count 81 TH/MM3 Mean Platelet Volume 11.4 FL CBC Comment AUTO DIFF Differential Total Cells Counted 100 Neutrophils % (Manual) 60 % Band Neutrophils % 6 % Lymphocytes % 9 % Monocytes % 24 % Neutrophils # (Manual) 6.8 TH/MM3 Metamyelocytes 1 % Differential Comment FINAL DIFF MANUAL Blastocytes 0 % Platelet Estimate LOW Platelet Morphology Comment NORMAL Lipase 135 U/L Imaging Last Impressions Chest X-Ray 10/08/172001 Signed Impressions: Service Date/Time: Sunday, October 08, 2017 20:11 - CONCLUSION: 1. No active disease. Husam Byrd MD Objective Remarks GENERAL: This is a well-nourished, well-developed patient, in no apparent distress. SKIN: No rashes, ecchymoses or lesions. Cool and dry. CARDIOVASCULAR: Regular rate and rhythm RESPIRATORY: Clear to auscultation. Breath sounds equal bilaterally. GASTROINTESTINAL: Abdomen soft, nondistended. Tenderness RUQ MUSCULOSKELETAL: Extremities without clubbing, cyanosis, or edema. No joint tenderness, effusion, or edema noted. No calf tenderness. Negative Homans sign bilaterally. NEUROLOGICAL: Awake and alert. No focal deficits. Motor and sensory grossly within normal limits. Five out of 5 muscle strength in all muscle groups. Normal speech. A/P Problem List: (1) Transaminitis ICD Codes: R74.0 - Nonspecific elevation of levels of transaminase and lactic acid dehydrogenase [LDH] Plan: Outpatient ultrasound the abdomen impression: Evidence consistent with numerous gallstones in the gallbladder and a dilated common bile duct measuring 10.2 mm in size. A definitive filling defect is not seen. Recommend MRCP. Liver is mildly echogenic and heterogeneous with areas of decreased echo test architecture suggesting probable fatty infiltrate change with areas of fatty sparing. If the patient has a known malignancy then other etiology left given - on admission total bilirubin 1.1, AST 491, ALT 268 and Alk Phos 268 - Patient with acute elevation of liver enzymes and "chest pain," after eating. - patient with temp 100.2 - blood culture x 2 requested - Started on Zosyn after blood culture obtained - MRCP revealed: 9 mm stone within the distal common bile duct resulting in dilation of the extrahepatic biliary system. Cholelithiasis. Multiple bilateral renal cysts and large left hepatic lobe cyst. Mild scoliosis of the thoracolumbar spine. - NPO - Consult GI (2) Anemia ICD Codes: D64.9 - Anemia, unspecified Status: Acute Plan: - The patient's hemoglobin on admission was 7.6 and macrocytic. recent hemoglobin on record with [facility] 09/01/17 9.0. - Recent outpatient labs revealed B12 09/01/17 507, Folate 6.7, reticulocyte count 0.9 - Patient reports that she recently saw a photographic editor Dr. Kenneth Mccray - fecal Specimen Occult Blood in the ER Positive - Outpatient ultrasound the abdomen impression: Evidence consistent with numerous gallstones in the gallbladder and a dilated common bile duct measuring 10.2 mm in size. A definitive filling defect is not seen. Recommend MRCP. Liver is mildly echogenic and heterogeneous with areas of decreased echo test architecture suggesting probable fatty infiltrate change with areas of fatty sparing. 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 No acute abnormalities. No focal destructive or sclerotic changes in the bone structures noted - patient also reports that she had a bone marrow biopsy [address] 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 Per patient and daughter at bedside patient had appointment with Dr. 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 Patient is currently thinking about her treatment options and possible further workup - Hemoglobin on admission 7.6 -> (10/09) 8.0 -> (10/09 @ 1305) 8.2 -> (10/10) 8.4 - consult oncology/hematology for assistance (3) Chest pain ICD Codes: R07.9 - Chest pain, unspecified Status: Acute Plan: Possible secondary gallbladder stone initial troponin < 0.02 x 3 EKG NSR rate [address] changes (4) GI bleed ICD Codes: K92.2 - Gastrointestinal hemorrhage, unspecified Status: Acute Plan: Patient had macrocytic anemia on admission fecal occult blood checked in the ER was positive Assessment and Plan Patient examined. Assessment and plan formulated with Hannah Suarez PA-C. I agree with the above. Bilirubin continues to rise. MRCP shows 1.9 cm stone distal CBD Case d/w with GI, Dr. Marie. Will proceed with ERCP this evening. Hannah Suarez Oct 10, 2017 12:24 Satinder Wallace DO Oct 10, 2017 22:03
--- NOTE | 2017-10-10 13:51 | PD.CONS ---
HPI History of Present Illness This is a 76 year old female who presented with chest pain, n/v after eating meatloaf 2 days ago. THe pain is in the substernal and epigastric region and radiates to the back. Last night she had a fever. She denies blood in stool, black tarry stool, blood in emesis, any prior hx liver problems. She is not on blood thinners. She had an EGD "long time ago" and can recall no details. She had colonoscopy over a year ago but cannot remember with who and recalls no abnormal findings. She ate cereal this morning at 0900. (Tamara Dumont) PFSH Past Medical History HTN HLD MDA DM CKD 3 Past Surgical History Back surgery, bladder surgery, coronary needle biopsy of breast, cataract surgery, colonoscopy, EGD, rhinoplasty, tonsillectomy, total abdominal hysterectomy with bilateral oophorectomy (Tamara Dumont) Uncoded Allergies: tolectin (Allergy, Severe, ANAPHYLAXIS, 03/07/12) Family History per EMR brca, osteoporosis, ovarian ca, DM, CAD Social History denies toxic habits (Tamara Dumont) Review of Systems Constitutional: DENIES: Fever Endocrine: DENIES: Polydipsia Eyes: DENIES: Blurred vision Ears, nose, mouth, throat: DENIES: Hearing loss Respiratory: DENIES: Cough Cardiovascular: DENIES: Chest pain Gastrointestinal: COMPLAINS OF: Abdominal pain, Nausea, Vomiting, DENIES: Black stools, Bloody stools Genitourinary: DENIES: Hematuria Musculoskeletal: DENIES: Joint Swelling Integumentary: DENIES: Jaundice Hematologic/lymphatic: DENIES: Bruising Immunologic/allergic: DENIES: Eczema Neurologic: DENIES: Headache Psychiatric: DENIES: Confusion (Tamara Dumont) GI Exam Vitals I&O Vital Signs Date Time Temp Pulse Resp B/P (MAP) Pulse Ox O2 Delivery O2 Flow Rate FiO2 10/10/17 12:00 97.7 77 18 103/51 (68) 97 10/10/17 12:00 Room Air 10/10/17 08:00 65 10/10/17 08:00 97.3 71 18 114/56 (75) 95 10/10/17 08:00 Room Air 10/10/17 04:30 98.3 74 17 110/53 (72) 94 10/10/17 04:00 64 10/10/17 01:27 97.6 66 17 90/42 (58) 94 10/10/17 00:00 68 10/09/17 20:30 Room Air 10/09/17 20:00 90 10/09/17 20:00 99.9 88 17 121/61 (81) 93 10/09/17 16:05 100.2 96 20 150/66 (94) 89 10/09/17 16:00 Room Air 10/09/17 16:00 90 I/O 10/09/17 10/09/17 10/09/17 10/10/17 10/10/17 10/10/17 07:00 15:00 23:00 07:00 15:00 23:00 Intake Total 480 ml 240 ml Output Total 700 ml 240 ml Balance -220 ml 0 ml Intake Oral 480 ml 240 ml Output Urine Total 700 ml 240 ml # Voids 2 # Bowel Movements 0 2 Imaging Last Impressions Cholangiopancreatography MRI 10/10/17 0000 Signed Impressions: Service Date/Time: Tuesday, October 10, 2017 09:40 - CONCLUSION: 1. 9 mm stone within the distal common bile duct resulting in dilatation of the extrahepatic biliary system. 2. Cholelithiasis. 3. Multiple bilateral renal cysts and large left hepatic lobe cyst. 4. Mild scoliosis of the thoracolumbar spine. Patrick Stephens MD Chest X-Ray 10/08/172001 Signed Impressions: Service Date/Time: Sunday, October 08, 2017 20:11 - CONCLUSION: 1. No active disease. Husam Byrd MD Laboratory Test 10/09/17 16:13 10/09/17 20:20 10/09/17 22:55 10/10/17 06:25 Troponin I LESS THAN 0.02 NG/ML LESS THAN 0.02 NG/ML Urine Color DARK-YELLOW Urine Turbidity HAZY Urine pH 5.5 Urine Specific [place] 1.019 Urine Protein 30 mg/dL Urine Glucose (UA) 300 mg/dL Urine Ketones NEG mg/dL Urine Occult Blood MOD Urine Nitrite NEG Urine Bilirubin SMALL Urine Urobilinogen 2.0 MG/DL Urine Leukocyte Esterase NEG Urine RBC 116 /hpf Urine WBC 1 /hpf Urine Squamous Epithelial Cells 1 /hpf Urine Mucus FEW /lpf Microscopic Urinalysis Comment CULT NOT INDICATED Blood Urea Nitrogen 13 MG/DL Creatinine 1.39 MG/DL Random Glucose 126 MG/DL Total Protein 6.8 GM/DL Albumin 3.2 GM/DL Calcium Level 8.7 MG/DL Alkaline Phosphatase 355 U/L Aspartate Amino Transf (AST/SGOT) 257 U/L Alanine Aminotransferase (ALT/SGPT) 294 U/L Total Bilirubin 2.6 MG/DL Sodium Level 136 MEQ/L Potassium Level 3.1 MEQ/L Chloride Level 104 MEQ/L Carbon Dioxide Level 21.9 MEQ/L Anion Gap 10 MEQ/L Estimat Glomerular Filtration Rate 37 ML/MIN White Blood Count 10.2 TH/MM3 Red Blood Count 2.25 MIL/MM3 Hemoglobin 8.4 GM/DL Hematocrit 25.1 % Mean Corpuscular Volume 111.4 FL Mean Corpuscular Hemoglobin 37.4 PG Mean Corpuscular Hemoglobin Concent 33.6 % Red Cell Distribution Width 19.2 % Platelet Count 81 TH/MM3 Mean Platelet Volume 11.4 FL CBC Comment AUTO DIFF Differential Total Cells Counted 100 Neutrophils % (Manual) 60 % Band Neutrophils % 6 % Lymphocytes % 9 % Monocytes % 24 % Neutrophils # (Manual) 6.8 TH/MM3 Metamyelocytes 1 % Differential Comment FINAL DIFF MANUAL Blastocytes 0 % Platelet Estimate LOW Platelet Morphology Comment NORMAL Test 10/10/17 11:07 Lipase 135 U/L Date/Time Source Procedure Growth Status 10/09/17 19:32 Blood Peripheral Aerobic Blood Culture - Preliminary NO GROWTH IN 1 DAY Resulted 10/09/17 19:32 Blood Peripheral Anaerobic Blood Culture - Preliminary NO GROWTH IN 1 DAY Resulted Physical Examination HEENT: PERRL; normocephalic; atraumatic; no jaundice. CHEST: CTA CARDIAC: RRR ABDOMEN: Soft, nondistended,TTP RUQ & epigastrium; no hepatosplenomegaly; bowel sounds are present in all four quadrants. EXTREMITIES: No clubbing, cyanosis, or edema. SKIN: Normal; no rash; no jaundice. SECURITY SYSTEMS ENGINEER: No focal deficits; alert and oriented times three. (Tamara Dumont) Assessment and Plan Plan ASSESSMENT - epigastric pain, n/v, abnormal imaging - choledocholithiasis. 9mm CBD stone seen on MRCP PLAN - ERCP today - obtain consent - NPO - CMP in am - further recs to follow pt seen by myself and Dr Marie and this note is on his behalf (Tamara Dumont) Plan Patient was seen and examined, agree with above note, plan on doing a ERCP with stone removal today, platelet is down because of MDS, but adequate, patient and family aware of the procedure and risks and consented to the procedure (Francis Marie MD) Tamara Dumont Oct 10, 2017 13:51 Francis Marie MD Oct 10, 2017 17:04
[2017-10-10] MEDS ORDERED: GLUCAGON 1 MG/ML VIAL OTHER ONE (16:45)
[2017-10-10] MEDS ORDERED: IOHEXOL 350 MG/ML 50 ML BTL (for RAD DIAG) OTHER ONE (16:45)
[2017-10-10] MEDS ORDERED: DO NOT ADM ANY ANTICOAGULANT DRUGS PRN (17:15)
--- NOTE | 2017-10-10 17:26 | RADRPT ---
EXAM DATE/TIME: 10/10/2017 15:47 [facility] COMPARISON: No previous studies available for comparison. INDICATIONS : Obstruction. FLUORO TIME: 6.21 minutes IMAGE COUNT: 34 CONTRAST: Instilled by Ordering PhysicianHemaidan MEDICAL HISTORY : Unresponsive. SURGICAL HISTORY : Unresponsive. ENCOUNTER: Subsequent ACUITY: 3 days PAIN SCORE: Non-responsive. LOCATION: ERCP. FINDINGS: An ERCP was performed by the ordering physician. The images demonstrate a filling defect in the distal common bile duct with prominence of the common bile duct. Subsequent images demonstrate a balloon retraction through the condyle duct with resolutio n of the distal filling defect. CONCLUSION: ERCP as above. Randolph Perez MD on October 10, 2017 at 17:22 Board Certified Radiologist. This report was verified electronically.
--- NOTE | 2017-10-10 20:01 | EKG ---
Date Performed: 10/09/2017 Time Performed: 22:17:26 PTAGE: 76 years EKG: Sinus rhythm NONSPECIFIC T-WAVE ABNORMALITY BORDERLINE ECG Since the PREVIOUS TRACING , no significant change noted PREVIOUS TRACIN10/09/2017 15.45 DOCTOR: Hay Issa Interpretating Date/Time 10/10/2017 19:59:55
--- NOTE | 2017-10-10 20:10 | EKG ---
Date Performed: 10/09/2017 Time Performed: 15:45:35 PTAGE: 76 years EKG: SINUS TACHYCARDIA SLIGHT NONSPECIFIC ST ABNORMALITY LEAD (S) UNSUITABLE FOR ANALYSIS: V6 Si nce the PREVIOUS TRACING , no significant change noted PREVIOUS TRACIN10/08/2017 22.40 DOCTOR: Hay Issa Interpretating Date/Time 10/10/2017 20:08:58
[2017-10-10] MEDS: ATORVASTATIN 20 MG TAB PO SCH (20:38)
[2017-10-10] MEDS: LATANOPROST 0.005% OPHT SOLN 2.5 ML BTL EACH EYE SCH (20:39)
[2017-10-10] MEDS: ACETAMINOPHEN 325 MG TAB PO PRN (20:39)
--- NOTE | 2017-10-10 20:56 | MB ---
cc: Paul Shaw MD,Kenneth Santos MD, DO DATE: 10/10/2017 PRIMARY CARE PHYSICIAN: Dr. Georgette Mccracken. REASON FOR CONSULTATION: The patient with a recent diagnosis of myelodysplastic syndrome, most consistent with RAEB-2. She was diagnosed about a week and a half ago. CHIEF COMPLAINT: The patient reports developing right upper quadrant abdominal pain all of a sudden on the day of presentation; 10/08/2017. She reports the pain arose sharply after she had lunch. HISTORY OF PRESENT ILLNESS: Ms. 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 She presently lives at home with her . She has 1 adult daughter who lives nearby. The patient reports being a lifelong nonsmoker and denies alcohol abuse. The patient reports being at her home on the day of admission, she had lunch and felt a sharp pain in the right upper quadrant. She presented to the hospital for further workup and management. Laboratory findings revealed Abnormal liver function testing with elevated AST, ALT and alkaline phosphatase as well as bilirubin levels. She underwent serial cardiac enzymes, which were noted to be negative. She subsequently underwent an MRCP, which revealed a 9 mm stone within the distal common bile duct, resulting in dilation of the extrahepatic biliary system. On 10/10/2017 she underwent ERCP with retrieval of the bile duct stone. She is now recovering in her room. The oncology service was asked to see her given the recent diagnosis of myelodysplastic syndrome. The patient's daughter is at bedside and she has with her that the bone marrow biopsy report. The patient had been seeing Dr. Kenneth Mccray of [facility], she met with Dr. Mccray earlier this week and discussed the new diagnosis. He had recommended systemic therapy with Vidaza or Dacogen, the patient had requested a few days to consider her options before committing. PAST MEDICAL HISTORY: 1. New diagnosis of myelodysplastic syndrome. 2. Macrocytic anemia related to above. 3. Hypertension. 4. Hyperlipidemia. PAST SURGICAL HISTORY: 1. Lumbar back surgery. 2. Hysterectomy (partial). FAMILY HISTORY: Mother had breast cancer, this was not the cause of her . Father at the age of 56 of massive myocardial infarction. No other oncologic diagnoses noted. SOCIAL HISTORY: The patient lives at home with her , never smoked. She is a retired teacher. ALLERGIES: TOLECTIN. CURRENT INPATIENT MEDICATIONS: 1. Zosyn 3.375 grams IV q. 8 hours. 2. Tylenol 650 mg p.o. q. 6 hours as needed for pain. 3. Atorvastatin 20 mg p.o. at bedtime. 4. Calcium carbonate 500 mg p.o. q. 2 hours as needed for dyspepsia. 5. Clonidine 0.2 mg p.o. q. 6 hours as needed for hypertension. 6. Dorzolamide 2% eyedrops 1 drop in each eye 3 times a day. 7. Ibuprofen 400 mg p.o. q. 8 hours as needed for fever. 8. Latanoprost eyedrops 1 drop in each eye at bedtime. 9. Lisinopril 10 mg p.o. daily. 10. Zofran 4 mg IV every 4 hours as needed for nausea and vomiting. 11. Pantoprazole 40 mg p.o. daily. 12. Potassium chloride 30 mEq p.o. x 1. REVIEW OF SYSTEMS: A 13-point review of systems was obtained, the following are the pertinent positives and negatives: CONSTITUTIONAL: The patient reports fatigue and weakness. She denies fevers, chills or night sweats. HEENT: Denies headaches, blurry vision, difficulty swallowing, or soreness of throat. RESPIRATORY: Reports exertional dyspnea. Denies cough or hemoptysis. Denies pleuritic chest pain. CARDIOVASCULAR: Denies angina-like chest pain, PND or orthopnea. She does report having had some palpitations. LOWER EXTREMITIES: No pretibial edema, no calf tenderness. CENTRAL NERVOUS SYSTEM: No focal sensory or motor deficits. GASTROINTESTINAL: Reports having had right upper quadrant epigastric pain, she reports having had some nausea. She denies hematemesis, hematochezia or melena. GENITOURINARY: No complaint. SKIN: No complaints. No other complaints reported. PHYSICAL EXAMINATION: VITAL SIGNS: Temperature 97.8 degrees Fahrenheit, heart rate 75 beats per minute, respiratory rate 16, blood pressure 123/60. O2 saturations are 95% on 2 liters nasal cannula. GENERAL APPEARANCE: Ms. Cassidy is an elderly lady, she is lying in bed. She appears to be pale. She is not acutely distressed. Her daughter is at bedside. HEENT: Head atraumatic, normocephalic. Conjunctivae are pale. Sclerae are anicteric, EOMI, PERRLA. Oral exam, no pharyngeal erythema. NECK: No palpable cervical or supraclavicular lymphadenopathy. RESPIRATORY: Good air movement bilaterally. No added breath sounds. HEART: Regular rate and rhythm, S1, S2. No obvious murmurs, rubs, gallops. ABDOMEN: Protuberant belly, soft, tender over the right upper quadrant. No hepatosplenomegaly noted. LOWER EXTREMITIES: No pretibial edema, no calf tenderness. SKIN: No bruising, no ecchymosis. No abnormal lesions identified. LABORATORY DATA: Blood work dated 10/09/2017: WBC count 10.2, hemoglobin 8.4 g/dL, hematocrit 25%, MCV 111, platelet count 81,000, absolute neutrophil count is approximately 9. Chemistries: Sodium 136, potassium 3.91 chloride 104, bicarbonate 22, BUN 13, creatinine is 1.4, EGFR is 37 mL/minute, random glucose is 126, calcium 8.7, total bilirubin 2.6, AST 257, ALT is 294, alkaline phosphatase is 355, albumin 3.2. Lipase is 135. PATHOLOGY: 1. Bone marrow biopsy performed at [facility] outpatient clinic dated 09/29/2017 indicates a high-grade myeloid neoplasm with trilineage dyspoiesis and increased monocytic cells including 15% blasts and blast equivalents (monoblast/pronormoblast). 2. Hypercellular marrow for age approximately 40% to 50% with relative granulocytic hyperplasia and increased monocytic cells. Patchy mild reticulin fibrosis. 3. Trace amount of storage iron detected. ASSESSMENT: Ms. Cassidy is a 76-year-old female with a recent diagnosis of myelodysplastic syndrome, most consistent with an RAEB-2 with approximately 15% myeloid blasts. The patient had been undergoing an evaluation through Dr. Kenneth Mccray's office and recently had a bone marrow biopsy done. She was recommended hypomethylating agent therapy with either Vidaza or Dacogen but treatment had not yet been started. On 10/08/2017 she developed acute onset right upper quadrant abdominal pain and was brought into this facility. She was noted to have an obstructing common bile duct stone measuring 9 mm. She had abnormal liver function testing, as well. She underwent an endoscopic retrograde cholangiopancreatography earlier today and a 9 mm stone was retrieved from the distal common bile duct. The patient is now back on the floor. She tells me her pain is improved as well. The Oncology/Hematology service was asked to see her because of her diagnosis of myelodysplastic syndrome and ongoing anemia issues. RECOMMENDATIONS: Myelodysplastic syndrome with high blast percentage with findings consistent with RAEB-2. I would recommend supportive transfusions while she is inpatient. It would be reasonable to transfuse her to maintain a hemoglobin over 8 mg/dL. Her thrombocytopenia can be attributed to her MDS as well. I do not recommend any additional inpatient workup or management other than supportive transfusions. She has been advised to followup with Dr. Mccray at the time of discharge to initiate systemic therapy with Dacogen or Vidaza. The hematology service will follow along with you. MD JUSTA Alonzo/rt , 08:09 PM , 08:55 PM
[2017-10-10] MEDS ORDERED: PHENOL 1.4% SOLN 180 ML BTL PO PRN (21:00)
[2017-10-11] VITALS (13 sets, daily range): BP systolic 114–168; BP diastolic 57–72; PULSE 68–87; RESP 14–20; TEMP 97.3–98.8; O2SAT 94–97
[2017-10-11] MEDS: PIPERACIL-TAZO 3.375 GM PREMIX 50 ML IV SCH ×3 (00:08→18:00)
[2017-10-11 06:42] LABS: HEMATOCRIT 23.3 % (35.0-46.0); HEMOGLOBIN 7.9 GM/DL (11.6-15.3); MEAN CELL VOLUME 110.8 FL (80.0-100.0); MEAN CORPUSCULAR HEMOGLOBIN 37.5 PG (27.0-34.0); MEAN CORPUSCULAR HGB CONC 33.9 % (32.0-36.0); MEAN PLATELET VOLUME 11.9 FL (7.0-11.0); PLATELET COUNT 88 TH/MM3 (150-450); RED BLOOD COUNT 2.11 MIL/MM3 (4.00-5.30); RED CELL DISTRIBUTION WIDTH 19.2 % (11.6-17.2); WHITE BLOOD COUNT 7.6 TH/MM3 (4.0-11.0)
[2017-10-11 06:56] LABS: AST (GOT) 98 U/L (15-37); BICARBONATE 23.6 MEQ/L (21.0-32.0); BLOOD UREA NITROGEN 20 MG/DL (7-18); CALCIUM 8.6 MG/DL (8.5-10.1); CHLORIDE 107 MEQ/L (98-107); CREATININE 1.31 MG/DL (0.50-1.00); GLOMERULAR FILTRATION RATE 39 ML/MIN (>89); GLUCOSE,RANDOM 94 MG/DL (74-106); SODIUM (NA) 140 MEQ/L (136-145)
[2017-10-11 06:57] LABS: ALT (GPT) 193 U/L (10-53)
[2017-10-11 06:59] LABS: ALKALINE PHOSPHATASE 321 U/L (45-117); TOTAL BILIRUBIN ADULT 1.3 MG/DL (0.2-1.0); TOTAL PROTEIN 6.6 GM/DL (6.4-8.2)
[2017-10-11] MEDS ORDERED: SODIUM CHLOR 0.9% 250 ML INJ 250 ML IV ONE (08:30)
[2017-10-11] MEDS ORDERED: FUROSEMIDE 20 MG/2 ML VIAL IV PUSH ONE (08:30)
[2017-10-11] MEDS ORDERED: POTASSIUM CHLORIDE 20 MEQ CONTROLLED RELEASE TAB PO ONE (08:30)
[2017-10-11 09:01] LABS: LYMPHOCYTES 8 % (9-44); MONOCYTES 22 % (0-8); NEUTROPHIL # MANUAL DIFF 5.3 TH/MM3 (1.8-7.7); POLYS (SEG NEUTROPHILS) 70 % (16-70)
[2017-10-11] MEDS: LISINOPRIL 10 MG TAB PO SCH (09:28)
[2017-10-11] MEDS: DORZOLAMIDE 2% OPTH SOLN 200 DROP/10 ML BTLO EACH EYE SCH ×3 (09:28→18:07)
[2017-10-11] MEDS: PANTOPRAZOLE SOD 40 MG DELAYED RELEASE TAB PO SCH (09:28)
[2017-10-11] MEDS: SODIUM CHLORIDE 0.9% FLUSH 10 ML FLUSH IV FLUSH SCH ×2 (09:28→20:41)
--- NOTE | 2017-10-11 11:27 | HHI.GIFU ---
Subjective Remarks pt feeling better. tolerating clears. (Tamara Dumont) Objective Vitals I&O Vital Signs Date Time Temp Pulse Resp B/P (MAP) Pulse Ox O2 Delivery O2 Flow Rate FiO2 10/11/17 08:00 Room Air 10/11/17 08:00 73 10/11/17 04:00 78 10/11/17 04:00 97.3 81 18 131/64 (86) 95 10/11/17 00:00 97.9 76 18 114/60 (78) 94 10/11/17 00:00 69 10/10/17 20:30 Room Air 10/10/17 20:00 97.5 77 18 136/60 (85) 96 10/10/17 20:00 77 10/10/17 17:45 97.8 75 16 123/60 (81) 95 Room Air 10/10/17 17:30 78 16 125/58 (80) 98 Nasal Cannula 2 10/10/17 17:15 79 16 128/59 (82) 99 Nasal Cannula 3 10/10/17 17:08 97.6 80 20 131/60 (83) 96 Nasal Cannula 3 10/10/17 16:00 97.7 75 18 121/59 (79) 95 10/10/17 16:00 Room Air 10/10/17 12:00 97.7 77 18 103/51 (68) 97 10/10/17 12:00 73 10/10/17 12:00 Room Air I/O 10/10/17 10/10/17 10/10/17 10/11/17 10/11/17 10/11/17 07:00 15:00 23:00 07:00 15:00 23:00 Intake Total 50 ml Output Total 900 ml Balance -900 ml 50 ml IV Total 50 ml Output Urine Total 900 ml # Voids 2 0 3 Laboratory Laboratory Tests Test 10/11/17 05:15 White Blood Count 7.6 Red Blood Count 2.11 Hemoglobin 7.9 Hematocrit 23.3 Mean Corpuscular Volume 110.8 Mean Corpuscular Hemoglobin 37.5 Mean Corpuscular Hemoglobin Concent 33.9 Red Cell Distribution Width 19.2 Platelet Count 88 Mean Platelet Volume 11.9 CBC Comment AUTO DIFF Differential Total Cells Counted 100 Neutrophils % (Manual) 70 Lymphocytes % 8 Monocytes % 22 Neutrophils # (Manual) 5.3 Differential Comment FINAL DIFF MANUAL Platelet Estimate LOW Platelet Morphology Comment ENLARGED Blood Urea Nitrogen 20 Creatinine 1.31 Random Glucose 94 Total Protein 6.6 Albumin 3.0 Calcium Level 8.6 Alkaline Phosphatase 321 Aspartate Amino Transf (AST/SGOT) 98 Alanine Aminotransferase (ALT/SGPT) 193 Total Bilirubin 1.3 Sodium Level 140 Potassium Level 3.5 Chloride Level 107 Carbon Dioxide Level 23.6 Anion Gap 9 Estimat Glomerular Filtration Rate 39 Date/Time Source Procedure Growth Status 10/09/17 19:32 Blood Peripheral Aerobic Blood Culture - Preliminary NO GROWTH IN 2 DAYS Resulted 10/09/17 19:32 Blood Peripheral Anaerobic Blood Culture - Preliminary NO GROWTH IN 2 DAYS Resulted Imaging Last Impressions GI Procedure 10/10/17 0000 Signed Impressions: Service Date/Time: Tuesday, October 10, 2017 15:47 - CONCLUSION: ERCP as above. Randolph Perez MD Cholangiopancreatography MRI 10/10/17 0000 Signed Impressions: Service Date/Time: Tuesday, October 10, 2017 09:40 - CONCLUSION: 1. 9 mm stone within the distal common bile duct resulting in dilatation of the extrahepatic biliary system. 2. Cholelithiasis. 3. Multiple bilateral renal cysts and large left hepatic lobe cyst. 4. Mild scoliosis of the thoracolumbar spine. Patrick Stephens MD Chest X-Ray 10/08/172001 Signed Impressions: Service Date/Time: Sunday, October 08, 2017 20:11 - CONCLUSION: 1. No active disease. Husam Byrd MD Physical Exam HEENT: PERRL; normocephalic; atraumatic; no jaundice. CHEST: CTA CARDIAC: RRR ABDOMEN: Soft, nondistended,TTP RUQ & epigastrium; no hepatosplenomegaly; bowel sounds are present in all four quadrants. EXTREMITIES: No clubbing, cyanosis, or edema. SKIN: Normal; no rash; no jaundice. 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 (Tamara Dumont) Assessment and Plan Plan ASSESSMENT - epigastric pain, n/v, abnormal imaging - choledocholithiasis. 9mm CBD stone seen on MRCP 10/11/17 still with some epigastric TTP but overall feeling better. tolerating clears. LFTs trending down. PLAN - heart healthy diet - supportive care pt seen by myself and Dr Marie and this note is on his behalf (Tamara Dumont) Plan Patient was seen and examined, agree with above note, LFT improving, advance diet as tolerated, improved in abdominal pain today (Francis Marie MD) Tamara Dumont Oct 11, 2017 11:27 Francis Marie MD Oct 11, 2017 14:05
--- NOTE | 2017-10-11 15:17 | HHI.PR ---
Subjective Remarks Patient reports feeling better today denies chest pain or abd pain. Tolerating clear liquid diet Objective Vitals Vital Signs Date Time Temp Pulse Resp B/P (MAP) Pulse Ox O2 Delivery O2 Flow Rate FiO2 10/11/17 14:06 97.3 81 18 120/57 96 10/11/17 12:59 97.9 72 18 126/60 97 10/11/17 12:00 97.9 72 18 126/60 (82) 97 10/11/17 08:05 98.0 73 19 144/65 (91) 95 10/11/17 08:00 Room Air 10/11/17 08:00 73 10/11/17 04:00 78 10/11/17 04:00 97.3 81 18 131/64 (86) 95 10/11/17 00:00 97.9 76 18 114/60 (78) 94 10/11/17 00:00 69 10/10/17 20:30 Room Air 10/10/17 20:00 97.5 77 18 136/60 (85) 96 10/10/17 20:00 77 10/10/17 17:45 97.8 75 16 123/60 (81) 95 Room Air 10/10/17 17:30 78 16 125/58 (80) 98 Nasal Cannula 2 10/10/17 17:15 79 16 128/59 (82) 99 Nasal Cannula 3 10/10/17 17:08 97.6 80 20 131/60 (83) 96 Nasal Cannula 3 10/10/17 16:00 97.7 75 18 121/59 (79) 95 10/10/17 16:00 Room Air Result Diagram: 10/11/17 0515 10/11/17 0515 Other Results Laboratory Tests Test 10/08/17 17:00 10/09/17 06:45 10/09/17 13:05 10/09/17 16:13 White Blood Count 5.0 TH/MM3 3.7 TH/MM3 Red Blood Count 2.04 MIL/MM3 2.18 MIL/MM3 Hemoglobin 7.6 GM/DL 8.0 GM/DL 8.2 GM/DL Hematocrit 22.8 % 24.3 % 24.5 % Mean Corpuscular Volume 111.5 FL 111.7 FL Mean Corpuscular Hemoglobin 37.3 PG 36.6 PG Mean Corpuscular Hemoglobin Concent 33.4 % 32.8 % Red Cell Distribution Width 18.6 % 18.8 % Platelet Count 104 TH/MM3 100 TH/MM3 Mean Platelet Volume 11.1 FL 11.1 FL Neutrophils (%) (Auto) 93.8 % Lymphocytes (%) (Auto) 4.6 % Monocytes (%) (Auto) 0.7 % Eosinophils (%) (Auto) 0.2 % Basophils (%) (Auto) 0.7 % Neutrophils # (Auto) 4.7 TH/MM3 Lymphocytes # (Auto) 0.2 TH/MM3 Monocytes # (Auto) 0.0 TH/MM3 Eosinophils # (Auto) 0.0 TH/MM3 Basophils # (Auto) 0.0 TH/MM3 CBC Comment AUTO DIFF AUTO DIFF Differential Comment AUTO DIFF CONFIRMED FINAL DIFF MANUAL Platelet Estimate LOW LOW Platelet Morphology Comment ENLARGED ENLARGED Prothrombin Time 10.7 SEC Prothromb Time International Ratio 1.1 RATIO Activated Partial Thromboplast Time 22.2 SEC Blood Urea Nitrogen 11 MG/DL 8 MG/DL Creatinine 0.98 MG/DL 0.97 MG/DL Random Glucose 123 MG/DL 108 MG/DL Calcium Level 8.0 MG/DL 8.5 MG/DL Magnesium Level 2.0 MG/DL Sodium Level 139 MEQ/L 139 MEQ/L Potassium Level 3.7 MEQ/L 3.5 MEQ/L Chloride Level 109 MEQ/L 108 MEQ/L Carbon Dioxide Level 23.7 MEQ/L 22.0 MEQ/L Anion Gap 6 MEQ/L 9 MEQ/L Estimat Glomerular Filtration Rate 55 ML/MIN 56 ML/MIN Total Bilirubin 1.1 MG/DL Direct Bilirubin 0.5 MG/DL Indirect Bilirubin 0.6 MG/DL Aspartate Amino Transf (AST/SGOT) 491 U/L Alanine Aminotransferase (ALT/SGPT) 303 U/L Alkaline Phosphatase 268 U/L Total Creatine Kinase 43 U/L Troponin I LESS THAN 0.02 NG/ML LESS THAN 0.02 NG/ML Total Protein 6.7 GM/DL Albumin 3.4 GM/DL Differential Total Cells Counted 100 Neutrophils % (Manual) 51 % Band Neutrophils % 4 % Lymphocytes % 15 % Monocytes % 29 % Neutrophils # (Manual) 2.0 TH/MM3 Blastocytes 1 % Test 10/09/17 20:20 10/09/17 22:55 10/10/17 06:25 10/10/17 11:07 Urine Color DARK-YELLOW Urine Turbidity HAZY Urine pH 5.5 Urine Specific Renner 1.019 Urine Protein 30 mg/dL Urine Glucose (UA) 300 mg/dL Urine Ketones NEG mg/dL Urine Occult Blood MOD Urine Nitrite NEG Urine Bilirubin SMALL Urine Urobilinogen 2.0 MG/DL Urine Leukocyte Esterase NEG Urine RBC 116 /hpf Urine WBC 1 /hpf Urine Squamous Epithelial Cells 1 /hpf Urine Mucus FEW /lpf Microscopic Urinalysis Comment CULT NOT INDICATED Blood Urea Nitrogen 13 MG/DL Creatinine 1.39 MG/DL Random Glucose 126 MG/DL Total Protein 6.8 GM/DL Albumin 3.2 GM/DL Calcium Level 8.7 MG/DL Alkaline Phosphatase 355 U/L Aspartate Amino Transf (AST/SGOT) 257 U/L Alanine Aminotransferase (ALT/SGPT) 294 U/L Total Bilirubin 2.6 MG/DL Sodium Level 136 MEQ/L Potassium Level 3.1 MEQ/L Chloride Level 104 MEQ/L Carbon Dioxide Level 21.9 MEQ/L Anion Gap 10 MEQ/L Estimat Glomerular Filtration Rate 37 ML/MIN Troponin I LESS THAN 0.02 NG/ML White Blood Count 10.2 TH/MM3 Red Blood Count 2.25 MIL/MM3 Hemoglobin 8.4 GM/DL Hematocrit 25.1 % Mean Corpuscular Volume 111.4 FL Mean Corpuscular Hemoglobin 37.4 PG Mean Corpuscular Hemoglobin Concent 33.6 % Red Cell Distribution Width 19.2 % Platelet Count 81 TH/MM3 Mean Platelet Volume 11.4 FL CBC Comment AUTO DIFF Differential Total Cells Counted 100 Neutrophils % (Manual) 60 % Band Neutrophils % 6 % Lymphocytes % 9 % Monocytes % 24 % Neutrophils # (Manual) 6.8 TH/MM3 Metamyelocytes 1 % Differential Comment FINAL DIFF MANUAL Blastocytes 0 % Platelet Estimate LOW Platelet Morphology Comment NORMAL Lipase 135 U/L Test 10/11/17 05:15 White Blood Count 7.6 TH/MM3 Red Blood Count 2.11 MIL/MM3 Hemoglobin 7.9 GM/DL Hematocrit 23.3 % Mean Corpuscular Volume 110.8 FL Mean Corpuscular Hemoglobin 37.5 PG Mean Corpuscular Hemoglobin Concent 33.9 % Red Cell Distribution Width 19.2 % Platelet Count 88 TH/MM3 Mean Platelet Volume 11.9 FL CBC Comment AUTO DIFF Differential Total Cells Counted 100 Neutrophils % (Manual) 70 % Lymphocytes % 8 % Monocytes % 22 % Neutrophils # (Manual) 5.3 TH/MM3 Differential Comment FINAL DIFF MANUAL Platelet Estimate LOW Platelet Morphology Comment ENLARGED Blood Urea Nitrogen 20 MG/DL Creatinine 1.31 MG/DL Random Glucose 94 MG/DL Total Protein 6.6 GM/DL Albumin 3.0 GM/DL Calcium Level 8.6 MG/DL Alkaline Phosphatase 321 U/L Aspartate Amino Transf (AST/SGOT) 98 U/L Alanine Aminotransferase (ALT/SGPT) 193 U/L Total Bilirubin 1.3 MG/DL Sodium Level 140 MEQ/L Potassium Level 3.5 MEQ/L Chloride Level 107 MEQ/L Carbon Dioxide Level 23.6 MEQ/L Anion Gap 9 MEQ/L Estimat Glomerular Filtration Rate 39 ML/MIN Imaging Last Impressions Chest X-Ray 10/08/172001 Signed Impressions: Service Date/Time: Sunday, October 08, 2017 20:11 - CONCLUSION: 1. No active disease. Husam Byrd MD Objective Remarks GENERAL: This is a well-nourished, well-developed patient, in no apparent distress. SKIN: No rashes, ecchymoses or lesions. Cool and dry. CARDIOVASCULAR: Regular rate and rhythm RESPIRATORY: Clear to auscultation. Breath sounds equal bilaterally. GASTROINTESTINAL: Abdomen soft, nondistended, nontender MUSCULOSKELETAL: Extremities without clubbing, cyanosis, or edema. No joint tenderness, effusion, or edema noted. No calf tenderness. Negative Homans sign bilaterally. NEUROLOGICAL: Awake and alert. No focal deficits. Motor and sensory grossly within normal limits. Five out of 5 muscle strength in all muscle groups. Normal speech. Procedures ERCP with stone removal 10/[address] Marie A/P Problem List: (1) Choledocholithiasis ICD Codes: K80.50 - Calculus of bile duct without cholangitis or cholecystitis without obstruction Plan: Outpatient ultrasound the abdomen impression: Evidence consistent with numerous gallstones in the gallbladder and a dilated common bile duct measuring 10.2 mm in size. A definitive filling defect is not seen. Recommend MRCP. Liver is mildly echogenic and heterogeneous with areas of decreased echo test architecture suggesting probable fatty infiltrate change with areas of fatty sparing. If the patient has a known malignancy then other etiology left given - on admission total bilirubin 1.1, AST 491, ALT 268 and Alk Phos 268 - Patient with acute elevation of liver enzymes and "chest pain," after eating. - patient with temp 100.2 - blood culture x 2 requested - Started on Zosyn after blood culture obtained -> 10/12 transition to PO Augmentin - MRCP revealed: 9 mm stone within the distal common bile duct resulting in dilation of the extrahepatic biliary system. Cholelithiasis. Multiple bilateral renal cysts and large left hepatic lobe cyst. Mild scoliosis of the thoracolumbar spine. - Consult GI - S/P ERCP ERCP with stone removal 10/[address] Marie - 10/11 LFTs trending down, tolerating clear liquid diet - GI advanced diet - repeat CBC and CMP in AM (2) Anemia ICD Codes: D64.9 - Anemia, unspecified Status: Acute Plan: - The patient's hemoglobin on admission was 7.6 and macrocytic. recent hemoglobin on record with [facility] 09/01/17 9.0. - Recent outpatient labs revealed B12 09/01/17 507, Folate 6.7, reticulocyte count 0.9 - Patient reports that she recently saw a administrative staff supervisor Dr. Kenneth Mccray - fecal Specimen Occult Blood in the ER Positive - Outpatient ultrasound the abdomen impression: Evidence consistent with numerous gallstones in the gallbladder and a dilated common bile duct measuring 10.2 mm in size. A definitive filling defect is not seen. Recommend MRCP. Liver is mildly echogenic and heterogeneous with areas of decreased echo test architecture suggesting probable fatty infiltrate change with areas of fatty sparing. 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 No acute abnormalities. No focal destructive or sclerotic changes in the bone structures noted - patient also reports that she had a bone marrow biopsy [address] 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 Per patient and daughter at bedside patient had appointment with Dr. 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 Patient is currently thinking about her treatment options and possible further workup - Hemoglobin on admission 7.6 -> (10/09) 8.0 -> (10/09 @ 1305) 8.2 -> (10/10) 8.4 - consult oncology/hematology for assistance recommend transfusion if hemoglobin < 8.0 - hemoglobin 7/9 on 10/11 will give 2 units PRBCs - CBC in AM (3) Chest pain ICD Codes: R07.9 - Chest pain, unspecified Status: Acute Plan: Possible secondary gallbladder stone initial troponin < 0.02 x 3 EKG NSR rate [address] changes (4) GI bleed ICD Codes: K92.2 - Gastrointestinal hemorrhage, unspecified Status: Acute Plan: Patient had macrocytic anemia on admission fecal occult blood checked in the ER was positive Assessment and Plan Patient examined. Assessment and plan formulated with Hannah Suarez PA-C. I agree with the above. Hannah Suarez Oct 11, 2017 15:17 Satinder Wallace DO Oct 14, 2017 10:26
[2017-10-11] MEDS ORDERED: FUROSEMIDE 40 MG/4 ML VIAL ONE (18:26)
[2017-10-11] MEDS: LATANOPROST 0.005% OPHT SOLN 2.5 ML BTL EACH EYE SCH (20:41)
[2017-10-11] MEDS: ATORVASTATIN 20 MG TAB PO SCH (20:42)
[2017-10-12] VITALS: BP 165/74; PULSE 75; RESP 20; TEMP 98.1; O2SAT 97
[2017-10-12 00:02] VITALS: PULSE 83
[2017-10-12 04:00] VITALS: BP 130/74; PULSE 65; RESP 20; TEMP 98.2; O2SAT 94
[2017-10-12 05:23] LABS: ALBUMIN 3.1 GM/DL (3.4-5.0); DIRECT BILIRUBIN ADULT 0.7 MG/DL (0.0-0.2)
[2017-10-12 05:25] LABS: INDIRECT BILIRUBIN 0.5 MG/DL (0.0-0.8); TOTAL BILIRUBIN ADULT 1.2 MG/DL (0.2-1.0)
[2017-10-12 05:37] LABS: AUTOMATED NEUTROPHIL # 3.2 TH/MM3 (1.8-7.7); BASOPHIL % 0.4 % (0.0-2.0); EOSINOPHIL % 0.2 % (0.0-4.0); HEMATOCRIT 30.2 % (35.0-46.0); HEMOGLOBIN 10.2 GM/DL (11.6-15.3); LYMPH % 18.2 % (9.0-44.0); MEAN CELL VOLUME 92.3 FL (80.0-100.0); MEAN CORPUSCULAR HGB CONC 33.6 % (32.0-36.0); MONO % 23.2 % (0.0-8.0); MONOCYTE # 1.3 TH/MM3 (0-0.9); PLATELET COUNT 84 TH/MM3 (150-450); RED BLOOD COUNT 3.27 MIL/MM3 (4.00-5.30); RED CELL DISTRIBUTION WIDTH 33.8 % (11.6-17.2); WHITE BLOOD COUNT 5.5 TH/MM3 (4.0-11.0)
[2017-10-12 07:32] LABS: LYMPHOCYTES 18 % (9-44); MONOCYTES 15 % (0-8); NEUTROPHIL # MANUAL DIFF 3.7 TH/MM3 (1.8-7.7); POLYS (SEG NEUTROPHILS) 67 % (16-70)
[2017-10-12 07:35] LABS: ACANTHOCYTES OCC (NORMAL)
[2017-10-12 08:00] VITALS: BP 167/68; PULSE 62; RESP 20; TEMP 98.5; O2SAT 95
[2017-10-12] MEDS: SODIUM CHLORIDE 0.9% FLUSH 10 ML FLUSH IV FLUSH SCH (08:20)
[2017-10-12] MEDS: PANTOPRAZOLE SOD 40 MG DELAYED RELEASE TAB PO SCH (08:20)
[2017-10-12] MEDS: DORZOLAMIDE 2% OPTH SOLN 200 DROP/10 ML BTLO EACH EYE SCH ×2 (08:20→12:33)
[2017-10-12] MEDS: LISINOPRIL 10 MG TAB PO SCH (08:20)
[2017-10-12] MEDS ORDERED: AMOX875T2 PO (08:35)
--- NOTE | 2017-10-12 08:36 | HHI.DCPOC ---
Discharge Care Plan Diagnosis: (1) Anemia (2) Chest pain (3) Choledocholithiasis Goals to Promote Your Health * To prevent worsening of your condition and complications * To maintain your health at the optimal level Directions to Meet Your Goals Take your medications as prescribed Follow your dietary instruction Follow activity as directed Keep your appointments as scheduled Take your immunizations and boosters as scheduled If your symptoms worsen call your PCP, if no PCP go to Urgent Care Center or Emergency Room Smoking is Dangerous to Your Health. Avoid second hand smoke Call the 24-hour hour crisis hotline for domestic abuse at Hannah Suarez Oct 12, 2017 08:36 aStinder Wallace DO Oct 14, 2017 10:27
--- NOTE | 2017-10-12 08:39 | HHI.DS ---
Discharge Summary Admission Date Oct 08, 2017 at 19:27 Discharge Date: Oct 12, 2017 Admitting Diagnosis Chest pain, GI bleed, anemia, syncope (1) Choledocholithiasis Diagnosis: Principal ICD Codes: K80.50 - Calculus of bile duct without cholangitis or cholecystitis without obstruction (2) Anemia Diagnosis: Principal ICD Codes: D64.9 - Anemia, unspecified Status: Acute (3) Chest pain Diagnosis: Principal ICD Codes: R07.9 - Chest pain, unspecified Status: Acute Consultants Dr. Marie, GI Dr. Shaw, Hematology/Oncology Procedures ERCP with stone removal 10/[address] Marie Brief History This is a 76-year-old female with history of GERD, hypertension, diabetes (diet controlled), hyperlipidemia, chronic kidney disease stage III, diverticulosis, anxiety. She presents via EMS for evaluation of chest pain. She reports that prior to arrival she developed a sharp substernal chest pain radiating to the back. The chest pain was associated with nasea, vomiting and diaphoresis. This occurred shortly after eating meat loaf. Symptoms lasted for approximately 30 minutes. She reports that EMS arrived and administered 3 baby aspirin as well as a nitroglycerin spray. She reports that after the sublingual spray her chest pain resolved but she had a brief 5-10 second syncopal episode and her blood pressure went down to the 90s systolic per EMS. She swiftly regained consciousness and her blood pressure improved. She has since been asymptomatic. She denies headache, shortness of breath, cough, congestion, abdominal pain, nausea, vomiting. According to old records she had a normal stress test in 2011, she points that she has not had any stress testing since then. She has no other complaints at this time. The patient's CBC reveals a hemoglobin of 7.6 which is macrocytic. She has platelet count of 104. Her most recent hemoglobin on record with [facility] 09/01/17 9.0, B12 507, Folate 6.7 and reticulocyte count 0.9. She reports that she recently saw a oncologist/enrichment director Dr. Kenneth Mccray and did a bone marrow biopsy 10 days ago. Patient had appointment with Dr. 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 She denies any shortness of breath, dyspnea with exertion, lightheadedness, dizziness. She denies any hematuria, hematemesis, black or tarry stools, bright red blood per rectum. Rectal examination in the ER reports brown stool which is heme positive. CBC/BMP: 10/12/17 0430 10/11/17 0515 Significant Findings Laboratory Tests Test 10/09/17 13:05 10/09/17 16:13 10/09/17 20:20 10/09/17 22:55 Hemoglobin 8.2 GM/DL (11.6-15.3) Hematocrit 24.5 % (35.0-46.0) Troponin I LESS THAN 0.02 NG/ML LESS THAN 0.02 NG/ML Urine Color DARK-YELLOW (YELLW/STRAW) Urine Turbidity HAZY (CLEAR) Urine Protein 30 mg/dL (NEG-TRACE) Urine Glucose (UA) 300 mg/dL (NEG) Urine Occult Blood MOD (NEG) Urine Bilirubin SMALL (NEG) Urine RBC 116 /hpf (0-3) Urine Mucus FEW /lpf (OCC) Creatinine 1.39 MG/DL (0.50-1.00) Random Glucose 126 MG/DL (74-106) Albumin 3.2 GM/DL (3.4-5.0) Alkaline Phosphatase 355 U/L (45-117) Aspartate Amino Transf (AST/SGOT) 257 U/L (15-37) Alanine Aminotransferase (ALT/SGPT) 294 U/L (10-53) Total Bilirubin 2.6 MG/DL (0.2-1.0) Potassium Level 3.1 MEQ/L (3.5-5.1) Estimat Glomerular Filtration Rate 37 ML/MIN (>89) Test 10/10/17 06:25 10/10/17 11:07 10/11/17 05:15 10/12/17 04:30 Red Blood Count 2.25 MIL/MM3 (4.00-5.30) 2.11 MIL/MM3 (4.00-5.30) 3.27 MIL/MM3 (4.00-5.30) Hemoglobin 8.4 GM/DL (11.6-15.3) 7.9 GM/DL (11.6-15.3) 10.2 GM/DL (11.6-15.3) Hematocrit 25.1 % (35.0-46.0) 23.3 % (35.0-46.0) 30.2 % (35.0-46.0) Mean Corpuscular Volume 111.4 FL (80.0-100.0) 110.8 FL (80.0-100.0) Mean Corpuscular Hemoglobin 37.4 PG (27.0-34.0) 37.5 PG (27.0-34.0) Red Cell Distribution Width 19.2 % (11.6-17.2) 19.2 % (11.6-17.2) 33.8 % (11.6-17.2) Platelet Count 81 TH/MM3 (150-450) 88 TH/MM3 (150-450) 84 TH/MM3 (150-450) Mean Platelet Volume 11.4 FL (7.0-11.0) 11.9 FL (7.0-11.0) Monocytes % 24 % (0-8) 22 % (0-8) 15 % (0-8) Platelet Estimate LOW (NORMAL) LOW (NORMAL) LOW (NORMAL) Lymphocytes % 8 % (9-44) Platelet Morphology Comment ENLARGED (NORMAL) ENLARGED (NORMAL) Blood Urea Nitrogen 20 MG/DL (7-18) Creatinine 1.31 MG/DL (0.50-1.00) Albumin 3.0 GM/DL (3.4-5.0) 3.1 GM/DL (3.4-5.0) Alkaline Phosphatase 321 U/L (45-117) 328 U/L (45-117) Aspartate Amino Transf (AST/SGOT) 98 U/L (15-37) 50 U/L (15-37) Alanine Aminotransferase (ALT/SGPT) 193 U/L (10-53) 138 U/L (10-53) Total Bilirubin 1.3 MG/DL (0.2-1.0) 1.2 MG/DL (0.2-1.0) Estimat Glomerular Filtration Rate 39 ML/MIN (>89) Monocytes (%) (Auto) 23.2 % (0.0-8.0) Monocytes # (Auto) 1.3 TH/MM3 (0-0.9) Acanthocytes OCC (NORMAL) Direct Bilirubin 0.7 MG/DL (0.0-0.2) Imaging Last Impressions GI Procedure 10/10/17 0000 Signed Impressions: Service Date/Time: Tuesday, October 10, 2017 15:47 - CONCLUSION: ERCP as above. Randolph Perez MD Cholangiopancreatography MRI 10/10/17 0000 Signed Impressions: Service Date/Time: Tuesday, October 10, 2017 09:40 - CONCLUSION: 1. 9 mm stone within the distal common bile duct resulting in dilatation of the extrahepatic biliary system. 2. Cholelithiasis. 3. Multiple bilateral renal cysts and large left hepatic lobe cyst. 4. Mild scoliosis of the thoracolumbar spine. Patrick Stephens MD Chest X-Ray 10/08/172001 Signed Impressions: Service Date/Time: Sunday, October 08, 2017 20:11 - CONCLUSION: 1. No active disease. Husam Byrd MD PE at Discharge GENERAL: This is a well-nourished, well-developed patient, in no apparent distress. SKIN: No rashes, ecchymoses or lesions. Cool and dry. CARDIOVASCULAR: Regular rate and rhythm RESPIRATORY: Clear to auscultation. Breath sounds equal bilaterally. GASTROINTESTINAL: Abdomen soft, nondistended, nontender MUSCULOSKELETAL: Extremities without clubbing, cyanosis, or edema. No joint tenderness, effusion, or edema noted. No calf tenderness. Negative Homans sign bilaterally. NEUROLOGICAL: Awake and alert. No focal deficits. Motor and sensory grossly within normal limits. Five out of 5 muscle strength in all muscle groups. Normal speech. Hospital Course Choledocholithiasis Outpatient ultrasound the abdomen impression: Evidence consistent with numerous gallstones in the gallbladder and a dilated common bile duct measuring 10.2 mm in size. A definitive filling defect is not seen. Recommend MRCP. Liver is mildly echogenic and heterogeneous with areas of decreased echo test architecture suggesting probable fatty infiltrate change with areas of fatty sparing. If the patient has a known malignancy then other etiology left given - on admission total bilirubin 1.1, AST 491, ALT 268 and Alk Phos 268 - Patient with acute elevation of liver enzymes and "chest pain," after eating. - patient with temp 100.2 - blood culture x 2 obtained, no growth x 3 days - Started on Zosyn after blood culture obtained -> 10/12 transition to PO Augmentin - MRCP revealed: 9 mm stone within the distal common bile duct resulting in dilation of the extrahepatic biliary system. Cholelithiasis. Multiple bilateral renal cysts and large left hepatic lobe cyst. Mild scoliosis of the thoracolumbar spine. - Consult GI - S/P ERCP ERCP with stone removal 10/[address] Marie - 10/11 LFTs trending down, tolerating clear liquid diet - GI advanced diet - repeat CBC and CMP in AM Anemia in patient with MDS - The patient's hemoglobin on admission was 7.6 and macrocytic. recent hemoglobin on record with [facility] 09/01/17 9.0. - Recent outpatient labs revealed B12 09/01/17 507, Folate 6.7, reticulocyte count 0.9 - Patient reports that she recently saw a enrichment director Dr. Kenneth Mccray - fecal Specimen Occult Blood in the ER Positive - Outpatient ultrasound the abdomen impression: Evidence consistent with numerous gallstones in the gallbladder and a dilated common bile duct measuring 10.2 mm in size. A definitive filling defect is not seen. Recommend MRCP. Liver is mildly echogenic and heterogeneous with areas of decreased echo test architecture suggesting probable fatty infiltrate change with areas of fatty sparing. 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 No acute abnormalities. No focal destructive or sclerotic changes in the bone structures noted - patient also reports that she had a bone marrow biopsy [address] 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 Per patient and daughter at bedside patient had appointment with Dr. 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 Patient is currently thinking about her treatment options and possible further workup - Hemoglobin on admission 7.6 -> (10/09) 8.0 -> (10/09 @ 1305) 8.2 -> (10/10) 8.4 - > (10/11) 7.9 -> (10/12) 10.2 after two units of PRBCs - consult oncology/hematology for assistance recommend transfusion if hemoglobin < 8.0 - hemoglobin 7/9 on 10/11 will give 2 units PRBCs - Patient to follow up with outpatient Director Of Clinical Services/Oncologist Dr. Mccray Chest pain Appears to be secondary gallbladder stone initial troponin < 0.02 x 3 EKG NSR rate [address] changes GI bleed Patient had macrocytic anemia on admission fecal occult blood checked in the ER was positive Pt Condition on Discharge: Stable Discharge Disposition: Discharge Home Discharge Instructions DIET: Follow Instructions for: As Tolerated, No Restrictions Activities you can perform: Regular-No Restrictions Follow up Referrals: Gastroenterology - 1 Week with Francis Marie MD Oncology/Hematology - 2-[address] Mccray PCP Follow-up - [address] Mccracken New Medications: Amoxicillin-Clavulanate (Amoxicillin-Clavulanate) 875-125 mg Tab 875 MG PO Q12HR for antibiotic for 7 Days, #14 TAB not for use in CrCl <30 mL/minute Continued Medications: Dorzolamide Opth Drops (Trusopt Opth Drops) 2% Soln 1 DROP EACH EYE TID for Glaucoma, #1 BOTTLE 0 Refills Latanoprost Opth Drops (Latanoprost Opth Drops) 0.005% Drops 1 DROP EACH EYE HS for Glaucoma, #2.5 ML 0 Refills Refrigerate until opened. Lisinopril (Lisinopril) 10 Mg Tab 10 MG PO DAILY, #30 TAB 0 Refills Omeprazole (Omeprazole) 20 Mg Tab 20 MG PO DAILY, #30 TAB 0 Refills Pilocarpine Opth 2% (Pilocarpine Opth 2%) 2 % Soln 1 DROP LEFT EYE Q6HR for Glaucoma, #1 BOTTLE 0 Refills Polyvinyl Alcohol-Povidone Opth Drops (Refresh Opth Drops) 1.4-0.6% Drops 1-2 DROP EACH EYE PRN PRN for DRY EYE, #1 BOTTLE 0 Refills Simvastatin (Zocor) 40 Mg Tab 40 MG PO DAILY for Cholesterol Management, #30 TAB 0 Refills Additional Information Patient examined. Assessment and plan formulated with Hannah Suarez PA-C. I agree with the above. Hannah Suarez Oct 12, 2017 08:39 Satinder Wallace DO Oct 14, 2017 10:27
[2017-10-12] MEDS ORDERED: AMOXICILLIN/CLAVULANATE K 875 MG TAB PO SCH (09:00)
[2017-10-12 12:00] VITALS: BP 149/67; PULSE 75; RESP 20; TEMP 98.6; O2SAT 97
== END 2017-10-12 16:10 | disposition home or self-care (01) | DRG 445 ==
LOC: NEPC 16:36 → NEDA 19:27 → N04B 20:45
PROVIDERS: ADMIT Hospitalist; ATTEND Hospitalist
PROC: 0FC98ZZ Extirpation of Matter from Common Bile Duct, Via Natural or Artificial Opening Endoscopic (ICD-10-PCS; principal; 2017-10-10 16:05)
PROC: 30233N1 Transfusion of Nonautologous Red Blood Cells into Peripheral Vein, Percutaneous Approach (ICD-10-PCS; 2017-10-11)
DX: K80.70 Calculus of gallbladder and bile duct without cholecystitis without obstruction (principal); D46.22 Refractory anemia with excess of blasts 2; E11.22 Type 2 diabetes mellitus with diabetic chronic kidney disease; K92.2 Gastrointestinal hemorrhage, unspecified; N28.1 Cyst of kidney, acquired; N18.3 Chronic kidney disease, stage 3 (moderate); K21.9 Gastro-esophageal reflux disease without esophagitis; I12.9 Hypertensive chronic kidney disease with stage 1 through stage 4 chronic kidney disease, or unspecified chronic kidney disease; E78.5 Hyperlipidemia, unspecified; K57.90 Diverticulosis of intestine, part unspecified, without perforation or abscess without bleeding; F41.9 Anxiety disorder, unspecified; R55 Syncope and collapse; Z83.3 Family history of diabetes mellitus; Z82.62 Family history of osteoporosis; Z82.49 Family history of ischemic heart disease and other diseases of the circulatory system; Z80.41 Family history of malignant neoplasm of ovary; Z80.3 Family history of malignant neoplasm of breast; M19.90 Unspecified osteoarthritis, unspecified site; D53.9 Nutritional anemia, unspecified; Z90.710 Acquired absence of both cervix and uterus; K76.89 Other specified diseases of liver; M41.85 Other forms of scoliosis, thoracolumbar region; H40.9 Unspecified glaucoma
CPT/HCPCS: 36430; 71045; 71046; 74181; 74330; 76377; 76937; 80048; 80053; 80076; 81001; 82550; 83690; 83735; 84484; 85007; 85014; 85018; 85025; 85027; 85610; 85730; 86850; 86900; 86901; 86920; 87040; 93005; 96374; C1769; C9113; J0330; J1610; J1940; J2370; J2405; J2543; J2710; J3010; J7050; P9016; Q9967

== ENCOUNTER 2017-11-07 06:32 | Day surgery (SDC) | payer MEDICARE ==
[~2017-11-07] VITALS: Ht 162.6 cm; Wt 70.5 kg
[2017-11-07] VITALS (8 sets, daily range): BP systolic 111–133; BP diastolic 49–77; PULSE 65–91; RESP 16–19; TEMP 97.6–97.9; O2SAT 91–96
[~2017-11-07 06:32] MED LIST changes: +AMOX875T2 PO; -CARB1DRO OU; -LATA0.00 OP; +LATA0.002 EACH EYE; -LISI-360 PO; +LISI10TA3 PO; -OMEP20TA PO; +OMEP20TA93 PO; +REFRDRO EACH EYE; -SIMV40TA PO; +TRUS2SOL EACH EYE; -TRUS2SOL OU; +ZOCO40TA PO
[2017-11-07] MEDS ORDERED: SODIUM CHLORIDE 0.9% 1000 ML IV SCH (07:00)
[2017-11-07] MEDS ORDERED: VANCOMYCIN 1000 MG/NS 250 ML - implanted port/tunneled catheter IV SCH ×2 (07:15)
[2017-11-07] MEDS ORDERED: CHLORHEXIDINE GLUCONATE 2 % 1 PACK (2 CLOTHS) TOPICAL SCH (07:15)
[2017-11-07] MEDS ORDERED: ceFAZolin 2 GM PREMIX 50 ML - implanted port/tunneled catheter insertion IV SCH (07:15)
[2017-11-07] MEDS ORDERED: POVIDONE IODINE 5% (ANTISEPSIS KIT) 4 APPLICATIONS EACH NARE SCH (07:15)
[2017-11-07 07:42] LABS: AUTOMATED NEUTROPHIL # 1.1 TH/MM3 (1.8-7.7); BASOPHIL # 0.1 TH/MM3 (0-0.2); BASOPHIL % 2.3 % (0.0-2.0); EOSINOPHIL % 0.4 % (0.0-4.0); HEMATOCRIT 25.1 % (35.0-46.0); HEMOGLOBIN 8.4 GM/DL (11.6-15.3); LYMPH % 38.1 % (9.0-44.0); LYMPHOCYTE # 1.1 TH/MM3 (1.0-4.8); MEAN CELL VOLUME 99.9 FL (80.0-100.0); MEAN CORPUSCULAR HEMOGLOBIN 33.3 PG (27.0-34.0); MEAN CORPUSCULAR HGB CONC 33.4 % (32.0-36.0); MEAN PLATELET VOLUME 10.1 FL (7.0-11.0); MONO % 18.6 % (0.0-8.0); MONOCYTE # 0.5 TH/MM3 (0-0.9); NEUT % 40.6 % (16.0-70.0); PLATELET COUNT 107 TH/MM3 (150-450); RED BLOOD COUNT 2.52 MIL/MM3 (4.00-5.30); RED CELL DISTRIBUTION WIDTH 30.5 % (11.6-17.2); WHITE BLOOD COUNT 2.8 TH/MM3 (4.0-11.0)
[2017-11-07 07:53] LABS: PROTHROMBIN TIME - PATIENT 10.3 SEC (9.8-11.6)
[2017-11-07] MEDS ORDERED: AMLO5TAB2 PO (07:55)
[2017-11-07] MEDS ORDERED: CALC1TAB87 PO (07:59)
[2017-11-07] MEDS ORDERED: LIDOCAINE 1%/EPINEPHrine 1:100,000 SOLN 20 ML VIAL ONE (08:06)
[2017-11-07 08:28] LABS: STOMATOCYTES 1+ (NORMAL)
[2017-11-07] MEDS ORDERED: MIDAZOLAM HCL 5 MG/5 ML VIAL ONE (08:38)
[2017-11-07] MEDS ORDERED: fentaNYL CITRATE 250 MCG/5 ML AMP ONE (08:38)
[2017-11-07] MEDS ORDERED: SODIUM CHLORIDE 0.9% FLUSH 10 ML FLUSH IVF PRN (10:00)
--- NOTE | 2017-11-07 10:00 | PD.RAD ---
Post Procedure Progress Note Pre Procedure Diagnosis: (1) CML (chronic myelocytic leukemia) Post Procedure Diagnosis: (1) CML (chronic myelocytic leukemia) Procedure Date: November 07, 2017 Supervising Radiologist: Best Lara Proceduralist/Assist: RT Consuelo(Cindy), Other (Storm) Anesthesia: Local, Analgesia, Conscious Sedation Plan of Activity Patient to Unit: ROPU Patient Condition: Good See PACS Report for procedural detail/treatment Central Venous Access Device Procedure 1 Right Internal Jugular Infusaport Placement single lumen Latvian: 8 Best Lara MD November 07, 2017 10:00
--- NOTE | 2017-11-07 13:50 | RADRPT ---
EXAM DATE/TIME: 11/07/2017 09:34 [place] COMPARISON: No previous studies available for comparison. INDICATIONS : Patient presents with leukemia in need of port placement. MEDICAL HISTORY : Glaucoma Hypercholesterolemia Diabetes SURGICAL HISTORY : Tonsillectomy Hysterectomy Laminectomy ENCOUNTER: Initial ACUITY: 2 weeks PAIN SCORE: 0/10 FLUORO TIME: 0.96 minutes IMAGE SERIES: 1 SEDATION TIME: 30 minutes ACCESS: Right internal jugular vein SEDATION: 1.) 2.5 mg midazolam (Versed) IV 2.) 125 mcg fentanyl (Sublimaze) IV Prophylactic antibiotics were administered with appropriate pre-procedure timing. Vancomycin within 2 hours of procedure, Ancef (or alternative) within 1 hour of procedure. DEVICE: 1. 8 Togolese single lumen [id number] PROCEDURE : 1. Continuous pulse oximetry and EKG monitoring. 2. Intravenous conscious sedation. 3. Ultrasound guidance for venous access. 4. Fluoroscopic guided implantable central venous port placement. The patient was placed supine. The neck was prepped in sterile fashion. Full sterile technique was u sed, including cap, mask, sterile gloves and gown, and a large sterile sheet. Hand hygiene and 2% ch lorhexidine Betadine was utilized per protocol for cutaneous antisepsis with appropriate dry time for site. Sterile gel and sterile probe cover were utilized for ultrasound guidance. The skin and sub cutaneous tissues were infiltrated with local anesthetic solution. Under direct ultrasound guidance, central venous access was accomplished in the targeted vessel. The ultrasound images depicting access guidance were stored and saved to PACS for permanent record. A s ubcutaneous pocket was created using blunt dissection. The port was introduced to the pocket. The c atheter tubing was fed through a subcutaneous tunnel to the venotomy site. The catheter tubing was c ut to a suitable length and then was introduced through a valved Peel-Away sheath and positioned with catheter tubing tip at the cavo-atrial junction level. The pocket incision was closed with subcutic ular Vicryl suture. Steri-Strips were applied. The port was flushed and locked with heparin solutio n per protocol. Sterile dressing was applied to the site. The patient tolerated the procedure well. Conscious sedation was performed with the prescribed dosages and duration as above in the presence of an independent trained radiology nurse to assist in the monitoring of the patient. EKG and oximetry remained stable throughout the procedure. The patient tolerated the procedure well and there were no complications. The patient was sent to post anesthesia recovery in stable condition. CONCLUSION: Uncomplicated ultrasound and fluoroscopic guided implanted central venous port catheter placement as described in detail above. An 8 Togolese Power port was placed. Best Lara MD on November 07, 2017 at 13:47 Board Certified Radiologist. This report was verified electronically.
== END 2017-11-07 12:25 | disposition home or self-care (01) ==
LOC: HROP 06:32 → HRIP 06:33 → HROP 12:25
PROVIDERS: ATTEND Internal Medicine Hematology
DX: Z45.2 Encounter for adjustment and management of vascular access device (principal); D46.9 Myelodysplastic syndrome, unspecified; D47.2 Monoclonal gammopathy; I10 Essential (primary) hypertension; E78.00 Pure hypercholesterolemia, unspecified; M81.0 Age-related osteoporosis without current pathological fracture
CPT/HCPCS: 36561; 76937; 77001; 85025; 85610; 85730; 99152; 99153; C1788; J0690; J1642; J2250; J3010; J3370; J7030; J7050